=== PATIENT | female | born 1960 | race Caucasian/White ===

== ENCOUNTER 2016-10-21 09:16 | Outpatient (CLI) | payer MEDICAID ==
[2016-10-21] MEDS ORDERED: IOPAMIDOL-300 50 ML VIAL IVP ONE (11:26)
[2016-10-21] MEDS ORDERED: IOPAMIDOL-300 50 ML VIAL PO ONE (12:00)
== END 2016-10-21 09:17 | disposition home or self-care (01) ==
DX: K80.20 Calculus of gallbladder without cholecystitis without obstruction (principal); R59.9 Enlarged lymph nodes, unspecified
CPT/HCPCS: 74177; Q9967

== ENCOUNTER 2016-12-29 15:40 | Outpatient (CLI) | payer MEDICAID ==
[2016-12-29] MEDS ORDERED: GADOBUTROL 10 MMOL/10 ML SYRINGE IVP ONE (17:20)
--- NOTE | 2016-12-30 16:52 | MRI Report ---
EXAM: MR PELVIS WITH AND WITHOUT CONTRAST EXAM DATE: 12/29/2016 05:40 PM. CLINICAL HISTORY: Pain in right hip COMPARISON: Abdomen and pelvis CT 10/21/2016. TECHNIQUE: Multiplanar breath-hold T1, T2 sequences obtained through the pelvis on an MR scanner. Im ages obtained before and after administration of 8.5 mL Gadavist intravenous contrast. FINDINGS: Bowel: Note is made of colonic diverticulosis without focal inflammation. Bladder: The urinary bladder appears normal. Reproductive Organs: Patient is status post hysterectomy and there are no adnexal masses. Soft Tissues: Heterogeneous T2 material is present at the level of the right inguinal canal consisten t with prior right inguinal hernia repair. No recurrent hernia is seen. Note is made of thinning of t he distal left rectus musculature with a fat-containing left direct inguinal hernia present (series 9 01, image #14) . No inflammation seen at the level the hernia sac. Bony Structures: No occult fracture. Note is made of a small right hip effusion with some hyperenhanc ement and thickening of the right hip synovium (series 1201, image #58 and series 1401, image #143). IMPRESSION: 1. Status post right inguinal hernia repair without evidence of recurrent hernia. 2. Fat-containing left direct inguinal hernia without evidence of inflammation in the hernia sac. 3. Small right hip effusion with some synovial thickening suggesting synovitis. As clinically needed, dedicated right hip MR would have improved evaluation of internal structures of the right hip. 4. Status post hysterectomy. [facility] Referring Provider Line: [phone] SITE ID: [id number]
== END 2016-12-29 15:41 | disposition home or self-care (01) ==
LOC: DI 15:40
PROVIDERS: ATTEND Surgery
DX: K40.90 Unilateral inguinal hernia, without obstruction or gangrene, not specified as recurrent (principal); M25.451 Effusion, right hip; Z90.710 Acquired absence of both cervix and uterus
CPT/HCPCS: 72197; A9585

== ENCOUNTER 2017-01-19 15:13 | Outpatient (CLI) | payer MEDICAID ==
[2017-01-19 15:35] LABS: BASOPHILS # (AUTO) 0.1 10^3/uL (0.0-0.1); BASOPHILS % (AUTO) 0.7 %; EOSINOPHILS # (AUTO) 0.3 10^3/uL (0.0-0.7); EOSINOPHILS % (AUTO) 3.5 %; HCT - HEMATOCRIT 43.4 % (37.0-47.0); HGB - HEMOGLOBIN 14.6 g/dL (12.0-16.0); LYMPHOCYTES # (AUTO) 1.8 10^3/uL (1.5-3.5); LYMPHOCYTES % (AUTO) 22.1 %; MEAN CORPUSCULAR HEMOGLOBIN 30.8 pg (27.0-31.0); MEAN CORPUSCULAR HGB CONC 33.6 g/dL (32.0-36.0); MEAN CORPUSCULAR VOLUME 91.6 fL (81.0-99.0); MONOCYTES # (AUTO) 0.5 10^3/uL (0.0-1.0); MONOCYTES % (AUTO) 6.6 %; NEUTROPHILS # (AUTO) 5.6 10^3/uL (1.5-6.6); NEUTROPHILS % (AUTO) 67.1 %; RED BLOOD COUNT 4.74 10^6/uL (4.20-5.40); RED CELL DISTRIBUTION WIDTH 13.3 % (12.0-15.0); UNCORRECTED WHITE BLOOD COUNT 8.3 x10^3/uL; WHITE BLOOD COUNT 8.3 x10^3/uL (4.8-10.8)
== END 2017-01-19 15:14 | disposition home or self-care (01) ==
LOC: LAB 15:13
PROVIDERS: ATTEND Obstetrics & Gynecology
DX: R10.31 Right lower quadrant pain (principal)
CPT/HCPCS: 36415; 85025

== ENCOUNTER 2017-01-21 11:22 | Day surgery (SDC) | payer MEDICAID ==
--- NOTE | 2017-01-19 17:55 | PREOP HISTORY & PHYSICAL ---
DATE OF ADMISSION/SURGERY: 01/21/2017 IDENTIFYING INFORMATION: This is 56-year-old G4, P3, 0-1-3. HISTORY OF PRESENT ILLNESS: The patient presents for her scheduled preoperative visit. The patient mcmullen s been noting a right lower quadrant pain that has now evolved to her lower abdomen. The patient's hi story is significant for an 05/14/2016 total laparoscopic hysterectomy, bilateral salpingo-oophorecto my and cystoscopy for postmenopausal bleeding. Her surgery went well, there were no complications. Pa thology revealed a uterus weighing 144 grams at 9.2 x 6.7 x 5.0 cm, cervix with no diagnostic alterat ions, benign endometrial polyp, background of disordered proliferative endometrium without atypia, hy perplasia or chronic endometritis, focal adenomyosis, benign leiomyomata. Fallopian tubes and ovaries no pathologic abnormalities. The patient's pain started in about October of 2016. The patient came back to me on 10/14/2016 with compl aints of 4 to 6 weeks of pain in the right lower quadrant worsening at night. To recall that she had a hernia repair with mesh in the right inguinal area. She feels her body tissue is weak. If she lifts or does any vacuuming or light gardening she has pain. The pain was rated as an 8/10 at that point i n time. She had to cancel scheduled events. She denied any vaginal bleeding or discharge. She also de nied any difficulty with urination or emptying her bowel. The patient was placed on NSAIDs as well as Oxycodone. I also asked for a CT which on 10/16/2016 showed right external iliac adenopathy, normal appendix and cholelithiasis. Referral was made to General Surgery and Dr. Vinita Kowalski saw the pa tient. She did not have any answers as well as to why patient had any pain. Finally, MRI was performe d which did not reflect any herniation in her anterior abdominal wall. The patient is currently scheduled for a 01/21/2017 diagnostic laparoscopy with possible lysis of adh esions. She states that in the last few weeks the pain which is like cramping is 100 times worse. The pain is in the right lower quadrant, but also left lower quadrant. She denies any fevers, chills, na usea, or vomiting. She also denies any vaginal bleeding or problems with defecating or urinating. The patient definitely wants to get this surgery done and over with as she is significantly inhibited in performing daily activities of life. She cannot go outside and take care of her animals or garden. A lso, she cannot lift any grandkids. I discussed with patient the risks, benefits, alternatives, indications, expectations of a diagnostic laparoscopy with possible lysis of adhesions. Included in our discussion were the risks of hemorrhag e, infection, inadvertent laceration, cauterization or ligation of the adjacent intestines, ureters o r bladder. There was also a possibility that we will find a completely benign pelvis. After all patie nt's questions were answered to her satisfaction she verbalized her desire to proceed with surgery. C onsent forms have been signed. I did tell patient that I will be very meticulous in examining her abd omen and pelvis should there be an abnormality such as possibility of appendicitis I will call [facility] in for an appendectomy. The patient was amenable to that plan. PAST MEDICAL HISTORY: 1. Chronic insomnia. 2. Anxiety. 3. Asthma. 4. Hypertension. 5. Gastrointestinal reflux disease. PAST SURGICAL HISTORY: 1. 1972 valve repair. 2. 1998 shoulder repair. 3. 2004 breast reduction as well as abdominoplasty. 4. 2002 melanoma. 5. 2008 hernia repair. 6. 05/14/2016 total laparoscopic hysterectomy with bilateral salpingo-oophorectomy and cystoscopy. ALLERGIES: NO KNOWN DRUG ALLERGIES. MEDICATIONS: 1. Oxycodone p.r.n. 2. Tramadol 50 mg t.i.d. 3. Alprazolam 0.25 mg p.o. t.i.d. p.r.n. 4. Estradiol 1.5 mg p.o. daily. 5. Ambien 5 mg p.o. daily. 6. Ventolin HFA p.r.n. 7. Advair Diskus p.r.n. SOCIAL HISTORY: She denies any tobacco, alcohol, or illicit drug use. PAST OBSTETRICAL HISTORY: Three term spontaneous vaginal deliveries with 1 spontaneous . PAST GYNECOLOGIC HISTORY: She denies any abnormal Pap smears or sexually transmitted diseases. Again, patient is status post hysterectomy secondary to postmenopausal bleeding. FAMILY HISTORY: Not contributory. REVIEW OF SYSTEMS: Negative unless otherwise stated. OBJECTIVE: VITAL SIGNS: Height is 69 inches, weight 196 pounds, BMI is 29.1, blood pressure 130/80. GENERAL: Patient is a well-developed, well-nourished female in no apparent distress. She is alert and oriented x3. She is very pleasant and easy to speak to. Patient is talkative. HEENT: Patient does wear glasses, but otherwise within normal limits. CARDIOVASCULAR: Regular, no murmurs or rubs. PULMONARY: Lungs are clear to auscultation bilaterally. ABDOMEN: Soft, nontender. Previous laparoscopic incision sites are well healed. She does have a well healed abdominoplasty scar. ASSESSMENT: 1. A 56-year-old G4, P3, 0-1-3. 2. Chronic pelvic pain. 3. Status post total laparoscopic hysterectomy and bilateral salpingo-oophorectomy and cystoscopy on 05/14/2016. PLAN: 1. Will proceed to as scheduled diagnostic laparoscopy with possible lysis of adhesions on 01/21/2017 . 2. Prescription for oxycodone for breakthrough pain. 3. The patient to see me in 2 weeks for routine postop visit. JOB #: [id number] EXT JOB #:[id number]
[2017-01-21] MEDS ORDERED: CELECOXIB 100 MG CAPSULE PO ONE (11:44)
[2017-01-21] MEDS ORDERED: LACTATED RINGERS 1,000 ML IV ONE ×2 (12:00→14:41)
[2017-01-21] MEDS ORDERED: fentaNYL 100 MCG/2 ML VIAL IVP ONE (14:00)
[2017-01-21] MEDS ORDERED: ROCURONIUM 50 MG/5 ML VIAL IVP ONE (14:00)
[2017-01-21] MEDS ORDERED: hydrALAZINE INJ 20 MG/ML VIAL IVP ONE (14:00)
[2017-01-21] MEDS ORDERED: MIDAZOLAM 2 MG/2 ML VIAL IVP ONE (14:00)
[2017-01-21] MEDS ORDERED: NEOSTIGMINE 1 MG/1 ML 10 ML MDV IVP ONE (14:00)
[2017-01-21] MEDS ORDERED: PROPOFOL 200 MG/20 ML VIAL IVP ONE (14:00)
[2017-01-21] MEDS ORDERED: SUCCINYLCHOLINE 200 MG/10 ML VIAL IVP ONE (14:00)
[2017-01-21] MEDS ORDERED: KETOROLAC 30 MG/ML VIAL IVP ONE (14:00)
[2017-01-21] MEDS ORDERED: GLYCOPYRROLATE 1 MG/5 ML VIAL IVP ONE (14:00)
[2017-01-21] MEDS ORDERED: ONDANSETRON 4 MG/2 ML VIAL IVP ONE (14:00)
[2017-01-21] MEDS ORDERED: LIDOCAINE-MPF 2% 5 ML VIAL IM ONE (14:00)
[2017-01-21] MEDS ORDERED: LIDOCAINE MPF 1%-EPI 1:200000 30 ML VIAL SUBQ ONE ×2 (14:06)
[2017-01-21] MEDS: HYDROmorphone 1 MG/ML SYRINGE ONE ×3 (14:52→15:04)
--- NOTE | 2017-01-21 14:52 | OPERATIVE REPORT ---
Operative Report - Other Other Information/Narrative: Date of Operation: 01/21/2017 Surgeon: Gail Hardin DO ACOG Performance Improvement Specialist: None Tailor Apprentice: Ron Enriquez CRNA and Livan Reed CRNA Anesthesia: GET Pre-op Dx: 1. 56 yo 2. Chronic pelvic pain Pre-op Dx: 1. 56 yo 2. Chronic pelvic pain Procedure: Laparoscopic lysis of adhesions Findings: Surgically absent uterus, fallopian tubes and ovaries. Adhesions between omentum and right sidewall Specimens: None Drains: None EBL: 20 mL Complications: None Dictation #: [id number]
[2017-01-21] MEDS: fentaNYL 100 MCG/2 ML VIAL ONE ×2 (15:14→15:19)
[2017-01-21] MEDS ORDERED: oxyCODONE 5 MG TABLET ONE (15:47)
[2017-01-21 16:30] VITALS: BP 147/76
--- NOTE | 2017-01-22 07:18 | OPERATIVE REPORT ---
DATE OF SURGERY: 01/21/2017 00:00:00 SURGEON: Gail Hardin DO. HOUSEKEEPING STAFF: None. ANESTHETISTS 1. Ron Enriquez CRNA for injection of anesthesia and through the majority of the case. 2. Livan Reed CRNA for closing of the case. ANESTHESIA: General endotracheal tube. PREOPERATIVE DIAGNOSES 1. A 56-year-old G4, P3-0-1-3. 2. Chronic pelvic pain. POSTOPERATIVE DIAGNOSES 1. A 56-year-old G4, P3-0-1-3. 2. Chronic pelvic pain. PROCEDURE: Laparoscopic lysis of adhesions. FINDINGS: Surgically absent uterus, fallopian tubes, and ovaries. Adhesions seen between the omentum and the right upper abdominal sidewall. SPECIMENS: None. DRAINS: Drains none. ESTIMATED BLOOD LOSS: 20 mL. COMPLICATIONS: None. BRIEF HISTORY: This is a patient of [facility] who is status post total laparoscopic hysterectomy and bilateral salpingo-oophorectomy in April of 2016. She started developing chronic pelvic pain earlier this year. Despite a trial of conservative methods including Motrin, as well as oxycodone, her pain persisted. I discussed with her the risks, benefits, terms, indications , expectations of a diagnostic laparoscopy with possible lysis of adhesions. After her questions were answered to her satisfaction, she verbalized her desire to proceed with surgery. Consent forms have been signed. OPERATION IN DETAIL: The patient was identified, consented, taken to the operating room where IV access was already in place. Sequential compression devices were placed on the lower extremities and turned on. She was then intubated with general endotracheal tube and then prepped and draped in the normal sterile fashion in the supine position. A timeout was performed, which correctly identified the patient, site of the procedure, and the procedures themselves. Two laparoscopic port sites were first identified, both 5 mm length and in the subumbilical fold, as well as the left lower quadrant where her previous laparoscopic port sites had been placed. A total of 5 mL of Marcaine 5% with epinephrine was used to inject both port sites. Stab incisions were made and the laparoscopic ports were placed under visualization with the camera using Visi-Port trocar. CO2 gas was then used to insufflate the abdomen and thus obtain satisfactory pneumoperitoneum. Inspection of the pelvis revealed a normal pelvis with a surgically absent uterus, fallopian tubes, and ovaries. There were some areas of healing in the peritoneum on the right sidewall. Looking superiorly from the pelvic brim, there were significant adhesions between the omentum and the right abdominal sidewall. Though the patient's symptoms were more in the right lower quadrant than left lower quadrant, I decided to proceed with lysis of adhesions from the omentum. This was performed with LigaSure using blunt dissection and electrocautery. After the omentum was freed, there was a small amount of bleeding noted. Surgicel was used to obtain hemostasis. I then placed Seprafilm on the top of the areas of the lysis of adhesions in order to prevent any future adhesions. At this point in time, the procedure had ended. CO2 gas was allowed to egress into the atmosphere, thus relieving the pneumoperitoneum. All instruments were removed out of the abdomen. The two 5 mm trocar port sites were then reapproximated with subcuticular stitches using 4-0 Monocryl. Dermabond was then placed on top of the incision. The patient tolerated the procedure well and was taken back to the recovery room in stable condition. She will discharged to home later today after postoperative criteria are met. The patient does have an appointment to see me in 2 weeks and does have oxycodone for breakthrough pain. All sponge, lap, and needle counts were correct x2 as per nurse report. JOB #: [id number] EXT JOB #:[id number] ART
== END 2017-01-21 11:23 | disposition home or self-care (01) ==
LOC: SDS 11:22
PROVIDERS: ATTEND Obstetrics & Gynecology
PROC: 0DNW4ZZ Release Peritoneum, Percutaneous Endoscopic Approach (ICD-10-PCS; principal; 2017-01-21 12:30)
DX: N73.6 Female pelvic peritoneal adhesions (postinfective) (principal); G89.29 Other chronic pain; Z90.722 Acquired absence of ovaries, bilateral; Z90.710 Acquired absence of both cervix and uterus; Z90.79 Acquired absence of other genital organ(s); J45.909 Unspecified asthma, uncomplicated; F41.9 Anxiety disorder, unspecified
CPT/HCPCS: 49329; A9270; J1170; J7120

== ENCOUNTER 2017-03-10 19:33 | Outpatient (CLI) | payer MEDICAID | END 2017-03-10 19:34 | disposition home or self-care (01) | LOC: LAB.R 19:33 | PROVIDERS: ATTEND Physician Assistant Medical | DX: Z20.2 Contact with and (suspected) exposure to infections with a predominantly sexual mode of transmission (principal) | CPT/HCPCS: 87491; 87591 ==

== ENCOUNTER 2017-07-23 14:18 | Outpatient (CLI) | payer MEDICAID ==
--- NOTE | 2017-07-24 10:31 | XRAY Report ---
DATE OF SERVICE: 07/23/2017 TWO VIEW CHEST: 07/23/2017 CLINICAL INDICATION: Bronchitis, asthma. COMPARISON: 08/18/2011. FINDINGS: Frontal and lateral views of the chest demonstrate a normal cardiac silhouette. There is perihilar peribronchial thickening. Basilar atelectasis or scarring is stable. No focal infiltrate, effusion, or pneumothorax is present. IMPRESSION: BILATERAL PERIHILAR PERIBRONCHIAL THICKENING. TD: 07/24/2017 11:30
== END 2017-07-23 14:19 | disposition home or self-care (01) ==
LOC: DI.S 14:18
PROVIDERS: ATTEND Family Medicine
DX: J45.909 Unspecified asthma, uncomplicated (principal)
CPT/HCPCS: 71046

== ENCOUNTER 2017-12-15 14:45 | Outpatient (CLI) | payer MEDICAID ==
[2017-12-15 15:36] LABS: CREATININE 0.7 mg/dL (0.4-1.0)
== END 2017-12-15 14:46 | disposition home or self-care (01) ==
LOC: LAB 14:45
PROVIDERS: ATTEND Obstetrics & Gynecology
DX: R10.84 Generalized abdominal pain (principal)
CPT/HCPCS: 36415; 82565

== ENCOUNTER 2017-12-17 10:32 | Outpatient (CLI) | payer MEDICAID ==
[2017-12-17] MEDS ORDERED: IOPAMIDOL-300 100 ML VIAL ONE (10:49)
[2017-12-17] MEDS ORDERED: IOPAMIDOL-300 50 ML VIAL ONE (10:49)
[2017-12-17] MEDS ORDERED: IOPAMIDOL-300 50 ML VIAL PO ONE (13:11)
[2017-12-17] MEDS ORDERED: IOPAMIDOL-300 100 ML VIAL IVP ONE (13:11)
--- NOTE | 2017-12-17 15:49 | CT Report ---
Procedure Date: 12/17/2017 Accession Number: [id number] / [id number] Procedure: CT - Abdomen/Pelvis W/ CPT Code: FULL RESULT: EXAM: CT ABDOMEN AND PELVIS EXAM DATE: 12/17/2017 11:54 AM. CLINICAL HISTORY: GENERALIZED ABDOMINAL PAIN. COMPARISONS: 10/21/2016, 12/29/2016. TECHNIQUE: Routine helical CT imaging was performed through the abdomen and pelvis. IV contrast: ISOVUE 300 100mL. Enteric contrast: No. Reconstructions: Coronal and sagittal. In accordance with CT protocol optimization, one or more of the following dose reduction techniques were utilized for this exam: automated exposure control, adjustment of mA and/or KV based on patient size, or use of iterative reconstructive technique. FINDINGS: Lung Bases: Scarring noted at the inferior aspect of the right middle lobe and lung bases. No pleural effusions. Liver: Unchanged small well-defined hepatic hypodensities in the liver, the larger lesions are compatible with cysts, the subcentimeter lesions are stable, but too small adequately characterize, possibly additional cysts, biliary hamartomas, or hemangiomas. No new enhancing liver lesion is seen. Hepatic and portal veins appear patent. Gallbladder/Bile Ducts: Multiple gallstones again noted. Contracted gallbladder. No biliary dilation. Spleen: No splenomegaly no focal sparing lesion. Small accessory spleen seen inferior to the spleen. Pancreas: Unremarkable pancreas without evidence for ductal dilation or inflammation. Adrenal Glands: Normal. Kidneys: Normal. No masses or hydronephrosis. Peritoneal Cavity/Bowel: No pneumoperitoneum or ascites. Small to moderate-sized hiatal hernia again seen. Bowel loops are otherwise normal in caliber without signs of obstruction. Scattered colonic diverticula, notably in the sigmoid colon, without evidence for acute diverticulitis. Appendix is normal. No enlarged intraperitoneal or retroperitoneal lymph nodes are seen. No discrete fluid collections are evident. Pelvic Organs: Unremarkable urinary bladder for degree of distention. Prostate and seminal vesicles appear normal by CT. Plug is seen in the right groin for right inguinal hernia repair. No evidence for recurrence. Small left inguinal hernia is seen. Vasculature: No aneurysms or other significant abnormality. Bones: No significant abnormality. Other: None. IMPRESSION: 1. Cholelithiasis with contracted gallbladder. Right upper quadrant ultrasound could be obtained for further evaluation if clinically indicated. 2. Otherwise, no acute abnormality seen in the abdomen or pelvis. Normal appendix. No CT findings to exclude acute abdominal pain. 3. Scattered colonic diverticulosis without evidence for acute diverticulitis. 4. Hypodense hepatic lesions are unchanged compared to prior, with the larger lesions representing simple cysts. 5. Expected, unchanged appearance post-right inguinal hernia repair. [facility] ADDENDUM: 12/18/17 09:24 Clarification: The uterus is surgically absent. Unremarkable appearance of the vaginal cuff.
== END 2017-12-17 10:33 | disposition home or self-care (01) ==
LOC: DI 10:32
PROVIDERS: ATTEND Obstetrics & Gynecology
DX: K80.20 Calculus of gallbladder without cholecystitis without obstruction (principal); K57.30 Diverticulosis of large intestine without perforation or abscess without bleeding; K76.9 Liver disease, unspecified
CPT/HCPCS: 74177; Q9967

== ENCOUNTER 2018-03-03 06:26 | Day surgery (SDC) | payer MEDICAID ==
--- NOTE | 2018-03-03 01:39 | PREOP HISTORY & PHYSICAL ---
DATE OF SERVICE: 03/03/2018 Physician: Gail Hardin DO FACOG IDENTIFICATION: This is a 57-year-old G4, P3-0-1-3. HISTORY OF PRESENT ILLNESS: Patient is a patient of [facility] who presents today for her regular scheduled preoperative visit. She has been scheduled for a 03/03/2018 diagnostic laparoscopy. I have known patient since 2016, in which I performed a total laparoscopic hysterectomy, bilateral salpingectomy and cystoscopy secondary to postmenopausal bleeding. She delivered a 144 gram uterus with no diagnostic alterations. Focal adenomyosis was seen. The adnexa were within normal limits. Patient had a normal recovery until September 2016, when she presented to me with right lower quadrant pain, lasting 4-6 weeks. Patient was observed and eventually had to undergo a 01/21/2017 diagnostic laparoscopy with lysis of adhesions. There was omentum noted between the right abdominal sidewall. Patient did quite well after surgery until November 2017, when she presented with very similar complaints as to her abdominal adhesions. Since July 2017, she has been having progressively worse pain at the lower abdomen, but particularly in the left lower quadrant. She states that the pain is getting worse, particularly when she lifts or does a lot of activity. She feels that her pain is occurring in the core area. The pain was estimated to be 7 to 8/10. Pain also feels like cramping. Vicodin did take the edge off. The symptoms continued to sound like it is adhesions again in etiology. I discussed with patient that, if she should desire, we can proceed again to another diagnostic laparoscopy, as surgery in and of itself can stimulate the growth of adhesions. I discussed with patient the risks, benefits, alternatives , indications and expectations of the diagnostic laparoscopy with the possibility of lysis of adhesions. Included in our discussion were the risks of hemorrhage, infection, damage to surrounding organs which may include, but are not limited to inadvertent laceration, cauterization or ligation of the adjacent intestines, bladder and ureters. Furthermore, there is a possibility that we will find a completely benign pelvis and no cause can be identified. After patient's questions were answered to her satisfaction, she verbalized her desire to proceed with surgery. Patient states that she is excited to get surgery over with, as she wants to be able to move without pain. She is more cognizant now about having no physical activity after surgery in order to minimize the chance of growth of any future scars. Patient will not lift her grand-baby, or lift anything more than 5 pounds. She currently denies any nausea, vomiting, fevers, chills, or headache. She also denies diarrhea or constipation. PAST MEDICAL HISTORY 1. Chronic insomnia. 2. Anxiety. 3. Asthma. 4. Hypertension. 5. GERD. PAST SURGICAL HISTORY 1. 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 2. Left shoulder. 3. Right inguinal hernia with mesh. 4. Abdominoplasty. 5. Breast augmentation. 6. In 1972, at age 12, open heart surgery for valve. She has not had any problems with this. ALLERGIES: NO KNOWN DRUG ALLERGIES. MEDICATIONS 1. Advair Diskus p.r.n. 2. Ventolin. 3. Estradiol. 4. Zolpidem. 5. Pepcid. SOCIAL HISTORY: She denies any tobacco or illicit drug use. She does consume alcohol on a social basis. She does sell real estate. Her youngest child is Tho, who is approximately age 25. PAST SURGICAL HISTORY: Three term spontaneous vaginal deliveries, the biggest baby weighing 11 pounds 15 ounces. She did have a hemorrhage. On , laparoscopic lysis of adhesions. PAST GYNECOLOGIC HISTORY: All Pap smears have been described within normal limits. She is status post total laparoscopic hysterectomy with bilateral salpingo-oophorectomy on 05/14/2016, without complication. FAMILY HISTORY: Noncontributory. REVIEW OF SYSTEMS: Negative, unless otherwise stated. OBJECTIVE VITAL SIGNS: Stable. She is afebrile. HEENT: Within normal limits. CARDIOVASCULAR: Rate is regular. No murmurs, rubs. PULMONARY: Lungs are clear to auscultation bilaterally. ABDOMEN: Soft, nontender. There are well-healed scars from her prior surgeries as described in the past surgical history. DIAGNOSTIC DATA: The 12/17/2017 CT of the abdomen and pelvis showed no pneumoperitoneum or ascites with a [id number] sized hiatal hernia seen again, scattered colonic diverticula notably in the sigmoid colon without evidence for acute diverticulitis, plugs in the right groin for a right inguinal repair. No evidence for recurrence. Small left inguinal hernia seen. Uterus surgically absent. Unremarkable appearance of the vaginal cuff. ASSESSMENT 1. A 57-year-old G4, P3-0-1-3, status post 05/14/2016 total laparoscopic hysterectomy with bilateral salpingo-oophorectomy and cystoscopy. 2. Status post 01/21/2017 laparoscopic lysis of adhesions. 3. Return of chronic pelvic pain. PLAN 1. We will proceed to a scheduled diagnostic laparoscopy on 03/03/2018 with possible lysis of adhesions. 2. Patient has been instructed to take ibuprofen and Tylenol as her first form of pain control, and she has a prescription for oxycodone for any breakthrough pain she may have. 3. Strict limitations of no lifting given to patient. 4. Patient will return to see me in 2 weeks at [facility] for a routine postoperative check. 5. Patient is to call if she has any worsening fevers, chills, abdominal pain or vaginal bleeding. TD: 03/02/2018 15:31 ART
[~2018-03-03 06:26] MED LIST: CELECOXIB 100 MG CAPSULE PO ONE
[2018-03-03] MEDS ORDERED: LACTATED RINGERS 1,000 ML IV ONE ×2 (06:37→08:22)
--- NOTE | 2018-03-03 07:02 | ANESTHESIA ---
Pre-Anesthesia VS, & Labs - Diagnosis Pelvic pain - Procedure Diagnostic laparascopy Vital Signs: Temp Pulse Resp BP Pulse Ox 36.2 C L 18 138/98 H 97 03/03/18 06:47 03/03/18 06:47 03/03/18 06:47 03/03/18 06:47 Height 5 ft 9 in Weight (kg) 79.9 kg Body Mass Index 28.0 - NPO >8 hours Last Fluid Intake: 0630, water with Celebrex - Is Patient ?: No - Lab Results Lab results reviewed: Yes Home Medications and Allergies Home Medications: Ambulatory Orders Medication Instructions Recorded Confirmed Albuterol Sulf [Ventolin Hfa 2 puffs INH PRN PRN 05/12/16 03/02/18 Inhaler] Estradiol 0.5 mg PO DAILY 05/12/16 03/02/18 Fluticasone/Salmeterol 250/50 1 puffs INH BID 05/12/16 03/02/18 [Advair 250 Mcg/50 Mcg] Zolpidem [Ambien] 5 mg PO DAILY PRN 05/12/16 03/02/18 predniSONE [Prednisone] 10 mg PO BID PRN 05/12/16 03/02/18 Allergies/Adverse Reactions: Allergies Allergy/AdvReac Type Severity Reaction Status Date / Time No Known Drug Allergies Allergy Verified 03/03/18 06:58 Anes History & Medical History - Anesthetic History Anesthesia Complications: reports: No previous complications Family history of Anesthesia Complications: Denies Family history of Malignant Hyperthermia: Denies - Medical History Cardiovascular: reports: Valve disorder Pulmonary: reports: Asthma Gastrointestinal: reports: None, Other (Hernia) Urinary: reports: None Neuro: reports: None Musculoskeletal: reports: Osteoarthritis, Other Endocrine/Autoimmune: reports: None Blood Disorders: reports: None Skin: reports: None Smoking Status: Former smoker Psychosocial: reports: No issues indicated - Surgical History General: Colonoscopy, Other Cardiothoracic: Valve replacement (Age 12, right thoracic approach) Gynecologic: Hysterectomy, Breast implants Orthopedic: Rotator cuff repair Exam General: Alert Dental: WNL Mouth Opening: Greater than 4 Fingerbreadths Neck Mobility: Normal Mallampati classification: I Thyromental Distance: greater than 6 cm Respiratory: Lungs clear Cardiovascular: Regular rate Mental/Cognitive Status: Alert/Oriented X3 Cognitive Status: Within normal limits Plan Anesthesia Type: General Consent for Procedure(s) Verified and Reviewed: Yes Code Status: Attempt Resuscitation ASA classification: 2-Mild systemic disease Is this case an emergency?: No
[2018-03-03] MEDS ORDERED: LIDOCAINE 1%-EPI 1:100000 30 ML MDV ONE (07:22)
[2018-03-03] MEDS ORDERED: PROPOFOL 1000 MG/100 ML IV ONE (08:27)
[2018-03-03] MEDS ORDERED: DEXAMETHASONE 4 MG/ML VIAL IVP ONE (08:27)
[2018-03-03] MEDS ORDERED: ROCURONIUM 50 MG/5 ML VIAL IVP ONE (08:27)
[2018-03-03] MEDS ORDERED: ONDANSETRON 4 MG/2 ML VIAL IVP ONE (08:27)
[2018-03-03] MEDS ORDERED: GLYCOPYRROLATE 1 MG/5 ML VIAL IVP ONE (08:27)
[2018-03-03] MEDS ORDERED: fentaNYL 250 MCG/5 ML VIAL IVP ONE (08:27)
[2018-03-03] MEDS ORDERED: MIDAZOLAM 2 MG/2 ML VIAL IVP ONE (08:27)
[2018-03-03] MEDS ORDERED: NEOSTIGMINE 1 MG/1 ML 10 ML MDV IVP ONE (08:27)
--- NOTE | 2018-03-03 09:03 | OPERATIVE REPORT ---
Operative Report - Other Other Information/Narrative: Date of Operation: 03/03/2018 Surgeon: Gail Hardin DO FACOG [employer] Layout: None Child Psychologist: Sharon Morrow CRNA Anesthesia: GET Pre-Op Dx: 1. 57 yo 2. Chronic pelvic pain Post-Op Dx: 1. 57 yo 2. Chronic pelvic pain 3. Adhesions Procedure: 1. Diagnostic laparoscopy 2. Lysis of adhesions Findings: Adhesions between omentum and right abd sidewall Specimens: None Drains: None EBL: 2 mL Complications: None OP Note Dictation #: [id number]
[2018-03-03] MEDS ORDERED: fentaNYL 100 MCG/2 ML VIAL ONE (09:49)
[2018-03-03] MEDS ORDERED: oxyCOD/ACETAMIN 5 MG/325 MG TABLET PO ONE (10:06)
[2018-03-03 10:28] VITALS: BP 156/99
--- NOTE | 2018-03-03 13:22 | OPERATIVE REPORT ---
DATE OF SERVICE: 03/03/2018 SURGEON: Gail Hardin DO, [facility] [employer] DIRECTOR: None. ANESTHESIOLOGIST: Sharon Morrow CRNA. ANESTHESIA: General endotracheal tube. PREOPERATIVE DIAGNOSES 1. 57-year-old G4, P3-0-1-3. 2. Chronic pelvic degeneration. POSTOPERATIVE DIAGNOSES 1. 57-year-old G4, P3-0-1-3. 2. Chronic pelvic pain. 3. Adhesions. OPERATIONS PERFORMED 1. Diagnostic laparoscopy. 2. Lysis of adhesions. FINDINGS 1. Adhesions between the omentum and the right abdominal sidewall. 2. Surgically absent uterus, fallopian tubes, and ovaries. 3. Normal appendix and liver edge. SPECIMENS: None. DRAINS: None. ESTIMATED BLOOD LOSS: 2 mL. COMPLICATIONS: None. BRIEF HISTORY: The patient is a patient of [facility] who has been having a progressively worse chronic pelvic pain. She did have a total laparoscopic hysterectomy with bilateral salpingo-oophorectomy on 05/14/2016. From that surgery, she had adhesions and underwent a 01/21/2017 laparoscopic lysis of adhesions. From the patient's history, it sounds like she has identical symptoms to her previous cause of chronic pelvic pain. I discussed with the patient the risks, benefits, alternatives, indications, expectations of an exploratory laparoscopy with possible lysis of adhesions. Included in our discussion were of the risks of hemorrhage, infection and damage to surrounding organs, which may include, but are not limited to inadvertent laceration, cauterization and ligation. After all of the patient's questions were answered to her satisfaction, she verbalized her desire to proceed with surgery. OPERATION IN DETAIL: The patient was identified and consented, taken to the operating room where IV access was already in place. She was then given sequential compression devices, which were placed in her lower extremities and turned on. She was then given a satisfactory general endotracheal tube anesthesia per Sharon Morrow. She was then prepped and draped in normal sterile fashion in the supine position. Timeout was performed, which corrected correctly identify the patient, site of the procedures, and the procedures themselves. Three laparoscopic port sites were first identified in the abdomen. They were all 5 mm in length. The first was placed in the supraumbilical fold. The left and right ports were placed in the previously identified laparoscopic ports. They were all approximately two fingerbreadths superior and medial to their respective anterior superior iliac spines. The first trocar was placed in the supraumbilical fold. After 1% lidocaine with epinephrine was used to inject the area, entrance of the abdomen was made with a Visiport trocar. No trauma to intraabdominal organs was noted. CO2 gas was then allowed to inflate the abdomen, and satisfactory pneumoperitoneum was obtained. The two other trocars were then placed under direct visualization of the camera. No trauma to intraabdominal organs was noted. Inspection of the pelvis revealed a surgically absent uterus, fallopian tubes, and ovaries. Liver edge was normal. Visualization of the right abdominal sidewall, however, revealed significant adhesions between the omentum and the right abdominal sidewall. This appeared to be quite similar to the patient's previous surgery. The adhesions were then subsequently taken down with the [place] LigaSure. Seprafilm was placed on top of the areas where the adhesions were taken down, in order to help prevent further adhesion growth in that area. At this point in time, the procedure had been completed. CO2 was then allowed to egress into the atmosphere, thus relieving the pneumoperitoneum. All instruments were removed on the abdomen. The incisions were then reapproximated with 4-0 Monocryl, and Dermabond was placed on top of the incisions. The patient tolerated the procedure well, and was taken back to the recovery room in a stable condition. She will be discharged to home later today after postoperative criteria have been met. She does have a prescription of oxycodone for breakthrough pain. She is also to take NSAIDs and acetaminophen first. The patient has an appointment with me in two weeks at [facility] for routine postoperative examination. I will talk to Shima, the patient's sister, about surgery and give them a copy of today's photos. TD: 03/03/2018 09:19 ART
== END 2018-03-03 06:27 | disposition home or self-care (01) ==
LOC: SDS 06:26
PROVIDERS: ATTEND Obstetrics & Gynecology
PROC: 0DNU4ZZ Release Omentum, Percutaneous Endoscopic Approach (ICD-10-PCS; principal; 2018-03-03 07:30)
DX: K66.0 Peritoneal adhesions (postprocedural) (postinfection) (principal); F41.9 Anxiety disorder, unspecified; J45.909 Unspecified asthma, uncomplicated; I10 Essential (primary) hypertension; K21.9 Gastro-esophageal reflux disease without esophagitis; Z90.79 Acquired absence of other genital organ(s); Z79.51 Long term (current) use of inhaled steroids
CPT/HCPCS: 49329; A9270; J3010; J7120

== ENCOUNTER 2018-03-26 12:53 | Outpatient (CLI) | payer MEDICAID ==
--- NOTE | 2018-03-26 17:09 | Mammography Report ---
Reason: LEFT BREAST LUMP Procedure Date: 03/26/2018 Accession Number: [id number] / [id number] Procedure: CHANCE - Diagnostic Dig Bilat CPT Code: FULL RESULT: EXAM: Diagnostic Dig Bilat DATE: 03/26/2018 1:31 PM CLINICAL HISTORY: 57-year-old female with history of saline breast implants presents with left breast tenderness. TECHNIQUE: Bilateral CC and MLO views were obtained in both implant displaced and traditional technique. Additionally, left spot LM and left spot CC views were obtained and focused left breast ultrasound was performed. COMPARISON: 06/07/2015, 01/02/2009, 04/20/2008. FINDINGS: The breasts demonstrate heterogeneously dense fibroglandular parenchyma bilaterally. The area marked with a BB in the left breast demonstrates a hyperdense well-circumscribed mass which is visible dating back to 2007 and immediately adjacent to this are new coarse heterogeneous and finely near calcifications which are suspicious. Focused ultrasound of this area demonstrates a taller than wide hypoechoic mass with angulated indistinct margins at the 11:00 position 4 cm from the left nipple measuring 1.6 x 2.2 x 1.5 cm. Ultrasound-guided left breast biopsy of this mass is recommended. The patient has an appointment April 07 at 12:15 for ultrasound-guided biopsy. IMPRESSION: Findings highly suggestive of malignancy. RECOMMENDATION: Biopsy BIRADS CATEGORY 5 STANDARD QUALIFYING STATEMENTS: 1. This examination was not reviewed with the aid of Computer-Aided Detection (CAD). 2. A negative or benign imaging report should not delay biopsy if clinically suspicious findings are present. Consider surgical consultation if warrented. More than 5% of cancers are not identified by imaging. 3. Dense breasts may obscure an underlying neoplasm.
== END 2018-03-26 12:54 | disposition home or self-care (01) ==
LOC: DI 12:53
PROVIDERS: ATTEND Obstetrics & Gynecology
DX: N63.22 Unspecified lump in the left breast, upper inner quadrant (principal); N63.21 Unspecified lump in the left breast, upper outer quadrant
CPT/HCPCS: 76642; 77066

== ENCOUNTER 2018-04-07 12:00 | Outpatient (CLI) | payer MEDICAID ==
[2018-04-07] MEDS ORDERED: BUPIVACAINE 0.5%-EPI 1:200000 PF 30 ML VIAL SUBQ ONE (14:21)
[2018-04-07] MEDS: BUFFERED LIDOCAINE 10 ML SYRINGE IU ONE (14:26)
--- NOTE | 2018-04-07 16:07 | Mammography Report ---
Reason: ABN MAMMO - LT BREAST MASS Procedure Date: 04/07/2018 Accession Number: [id number] / [id number] Procedure: CHANCE - Diagnostic Dig LT CPT Code: FULL RESULT: PROCEDURE: Ultrasound-guided needle biopsy left breast mass. CLINICAL DATA: Targeted mass measuring 1.6 x 2.2 x 1.5 cm with irregular margins in the 11 o'clock axis of the left breast. Informed consent was obtained. Using standard aseptic technique, both 1% buffered lidocaine and Sensorcaine were injected into the left breast for local anesthesia. A small filippo was made in the skin with a #11 blade. A 12-gauge several vacuum-assisted device was used to obtain 4 core specimens. A specialized biopsy marker clip was placed into the biopsy cavity under ultrasound guidance. The patient was taken to separate mammography machine and a two-view digital mammography was performed to verify the clip placement and any complications. The mammography showed concordant clip placement. The wound was dressed and ice applied. The patient was observed for approximately 15 minutes, then was discharged from diagnostic imaging Department in good condition following instructions on wound care and obtaining biopsy results. The patient is scheduled to receive the biopsy results from the referring physician. The tissue was sent for histologic analysis. IMPRESSION: Ultrasound-guided biopsy of the left breast. AN ADDENDUM WILL REMAIN TO THIS REPORT WHEN PATHOLOGY IS REVIEWED TO ESTABLISH CONCORDANCE.
--- NOTE | 2018-04-13 09:13 | Ultrasound Report ---
Reason: ABN MAMMO - LT BREAST MASS Procedure Date: 04/07/2018 Accession Number: [id number] / [id number] Procedure: US - Biopsy Breast Core CPT Code: FULL RESULT: PATHOLOGY ADDENDUM: Procedure performed by Dr. Colon. Pathology reviewed by Dr. Lynn. 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 Results are concordant with the imaging findings. Surgical consultation is suggested. BI-RADS 6 known malignancy. EXAM: Biopsy Breast Core DATE: 04/07/2018 2:40 PM CLINICAL HISTORY: ABN MAMMO - LT BREAST MASS TECHNIQUE: PROCEDURE: Ultrasound-guided needle biopsy left breast mass. CLINICAL DATA: Targeted mass measuring 1.6 x 2.2 x 1.5 cm with irregular margins in the 11 o'clock axis of the left breast. Informed consent was obtained. Using standard aseptic technique, both 1% buffered lidocaine and Sensorcaine were injected into the left breast for local anesthesia. A small filippo was made in the skin with a #11 blade. A 12-gauge several vacuum-assisted device was used to obtain 4 core specimens. A specialized biopsy marker clip was placed into the biopsy cavity under ultrasound guidance. The patient was taken to separate mammography machine and a two-view digital mammography was performed to verify the clip placement and any complications. The mammography showed concordant clip placement. The wound was dressed and ice applied. The patient was observed for approximately 15 minutes, then was discharged from diagnostic imaging Department in good condition following instructions on wound care and obtaining biopsy results. The patient is scheduled to receive the biopsy results from the referring physician. The tissue was sent for histologic analysis. IMPRESSION: Ultrasound-guided biopsy of the left breast. AN ADDENDUM WILL REMAIN TO THIS REPORT WHEN PATHOLOGY IS REVIEWED TO ESTABLISH CONCORDANCE.
== END 2018-04-07 12:01 | disposition home or self-care (01) ==
LOC: DI 12:00
PROVIDERS: ATTEND Obstetrics & Gynecology
DX: C50.212 Malignant neoplasm of upper-inner quadrant of left female breast (principal); Z17.0 Estrogen receptor positive status [ER+]
CPT/HCPCS: 19083

== ENCOUNTER 2018-11-23 11:17 | Emergency (ER) | payer MEDICAID ==
--- NOTE | 2018-11-23 12:15 | XRAY Report ---
Reason: sob Procedure Date: 11/23/2018 Accession Number: [id number] / [id number] Procedure: XR - Chest 1 View X-Ray CPT Code: 49839 FULL RESULT: EXAM: CHEST RADIOGRAPHY EXAM DATE: 11/23/2018 12:04 PM. CLINICAL HISTORY: Shortness of breath. History of asthma. On chemotherapy for breast cancer. COMPARISON: XR CHEST 1 VIEW POST PROCEDURE 07/23/2018 1:[address] [facility] [address] CHEST, ABDOMEN W/CONTRAST 07/05/2018 9:31 AM. TECHNIQUE: 1 view. FINDINGS: Lungs/Pleura: No focal consolidation evident. No pleural effusion. No pneumothorax. Subpleural fat along right costophrenic angle. Mediastinum: Within exam limitations, the cardiomediastinal contour is normal. Other: Right IJ Port-A-Cath with tip overlying lower third of SVC. Surgical clips overlie lateral left hemithorax. IMPRESSION: No consolidation evident. RADIA
[2018-11-23] MEDS ORDERED: IPRATROPIUM/ALBUTEROL 3 ML NEB INH STA ×2 (12:30→13:04)
[2018-11-23 12:32] LABS: BASOPHILS % (AUTO) 0.5 %; EOSINOPHILS % (AUTO) 0.1 %; HGB - HEMOGLOBIN 13.4 g/dL (12.0-16.0); LYMPHOCYTES # (AUTO) 0.4 10^3/uL (1.5-3.5); LYMPHOCYTES % (AUTO) 7.5 %; MEAN CORPUSCULAR HEMOGLOBIN 33.3 pg (27.0-31.0); MEAN CORPUSCULAR HGB CONC 34.1 g/dL (32.0-36.0); MEAN CORPUSCULAR VOLUME 97.5 fL (81.0-99.0); MONOCYTES # (AUTO) 0.4 10^3/uL (0.0-1.0); MONOCYTES % (AUTO) 7.2 %; NEUTROPHILS # (AUTO) 4.7 10^3/uL (1.5-6.6); NEUTROPHILS % (AUTO) 84.7 %; PLT - PLATELET COUNT 483 10^3/uL (130-450); RED BLOOD COUNT 4.03 10^6/uL (4.20-5.40); RED CELL DISTRIBUTION WIDTH 16.3 % (12.0-15.0); WHITE BLOOD COUNT 5.6 x10^3/uL (4.8-10.8)
[2018-11-23 12:45] LABS: ALBUMIN 4.5 g/dL (3.2-5.5); ALBUMIN/GLOBULIN RATIO 1.2 (1.0-2.2); BILIRUBIN,TOTAL 0.5 mg/dL (0.2-1.0); CREATININE 0.5 mg/dL (0.4-1.0); TOTAL PROTEIN 8.2 g/dL (6.7-8.2)
[2018-11-23] MEDS ORDERED: cefTRIAXone 1 GM in SODIUM CHLORIDE 0.9% MINIBAG 100 ML IV STA (13:04)
--- NOTE | 2018-11-23 13:06 | ED Physician Documentation ---
PD HPI DYSPNEA - Stated complaint Stated Complaint: SOA - Chief complaint Chief Complaint: Resp - History obtained from History obtained from: Patient, Family - History of Present Illness Timing - onset: How many days ago (5) Timing - onset during: Rest Timing - duration: Days (5) Timing - details: Gradual onset, Still present Inciting event(s): URI Improved by: Inhaler/neb, Steroids Worsened by: Exertion, Coughing Associated symptoms: Cough, Wheezing, Chest pain / discomfort. No: Fever Similar symptoms before: Diagnosis (asthma excacerbation) Recently seen: Other - Additional information Additional information: 58-year-old female with a history of asthma is undergoing chemotherapy for breast cancer and she has recently been to a get together where several people developed upper respiratory infection following the get together. She has developed URI with cough productive of clear phlegm and shortness of breath. She has had increased shortness of breath despite using her rescue inhaler and her usual Advair twice daily and she has increased her prednisone intake yesterday. She usually is taking 10 mg twice per day she took an extra 2 doses yesterday for a total of 40 mg. Despite that she continues to have some shortness of breath and is come to the emergency department for the first time with her asthma Review of Systems Constitutional: denies: Fever Eyes: denies: Decreased vision Ears: denies: Ear pain Nose: reports: Congestion. denies: Rhinorrhea / runny nose Throat: denies: Sore throat Cardiac: reports: Chest pain / pressure. denies: Palpitations, Pedal edema, Calf pain Respiratory: reports: Dyspnea, Cough, Wheezing GI: denies: Abdominal Pain, Nausea, Vomiting : denies: Dysuria, Frequency PD PAST MEDICAL HISTORY - Past Medical History Past Medical History: Yes Cardiovascular: Valve disorder Respiratory: Asthma Neuro: None Endocrine/Autoimmune: None GI: None, Other : None HEENT: None Psych: Depression, Anxiety Musculoskeletal: Osteoarthritis, Other Derm: None Other Past Medical History: breast ca on left side. 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, Breast implants Cardiovascular: Valve replacement - Present Medications Home Medications: Ambulatory Orders Medication Instructions Recorded Confirmed Albuterol Sulf [Ventolin Hfa 2 puffs INH PRN PRN 05/12/16 03/03/18 Inhaler] Estradiol 0.5 mg PO DAILY 05/12/16 03/02/18 Fluticasone/Salmeterol 250/50 1 puffs INH BID 05/12/16 03/03/18 [Advair 250 Mcg/50 Mcg] Zolpidem [Ambien] 5 mg PO DAILY PRN 05/12/16 03/02/18 predniSONE [Prednisone] 10 mg PO BID PRN 05/12/16 03/03/18 Azithromycin [Zithromax] 250 mg PO DAILY #6 tablet 11/23/18 Benzonatate [Tessalon Perle] 100 - 200 mg PO TID PRN #30 capsule 11/23/18 Hydrocodone/Acetaminophen 1 - 2 each PO Q6H PRN #14 tablet 11/23/18 [Hydrocodon-Acetaminophen 5-325] predniSONE [Deltasone] 10 mg PO ONCE #26 tablet 11/23/18 - Allergies Allergies/Adverse Reactions: Allergies Allergy/AdvReac Type Severity Reaction Status Date / Time silver Allergy Rash Verified 11/23/18 13:12 [From [employer] Mesh] - Social History Does the pt smoke?: No Smoking Status: Former smoker Does the pt drink ETOH?: No Does the pt have substance abuse?: No PD ED PE NORMAL - Vitals Vital signs reviewed: Yes (tachy tachypneic and hypertensive) - General General: Alert and oriented X 3, No acute distress, Well developed/nourished - HEENT HEENT: Atraumatic, PERRL, EOMI, Ears normal, Other (dry mucous membranes ) - Neck Neck: Supple, no meningeal sign, No bony TTP - Cardiac Cardiac: No murmur, Other (tachy to 110) - Respiratory Respiratory: Other (short shallow breaths with diminished breath sounds and scattered wheezes and rhonchi. 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, No motor deficit, No sensory deficit, Normal speech Eye Opening: Spontaneous Motor: Obeys Commands Verbal: Oriented GCS Score: 15 - Psych Psych: Normal mood, Normal affect Results - Vitals Vitals: Vital Signs - 24 hr 11/23/18 11/23/18 11/23/18 11:21 12:45 13:00 Temperature 36.8 C Heart Rate 123 H 119 H 105 H Respiratory 26 H 24 18 Rate Blood Pressure 192/114 H O2 Saturation 92 93 11/23/18 13:49 Temperature 37.0 C Heart Rate 112 H Respiratory 20 Rate Blood Pressure 169/104 H O2 Saturation 97 Oxygen O2 Source Room air - Labs Labs: Laboratory Tests 11/23/18 11/23/18 12:20 12:20 WBC 5.6 RBC 4.03 L Hgb 13.4 Hct 39.3 MCV 97.5 MCH 33.3 H MCHC 34.1 RDW 16.3 H Plt Count 483 H MPV 7.0 L Neut # (Auto) 4.7 Lymph # (Auto) 0.4 L Hudson # (Auto) 0.4 Eos # (Auto) 0.0 Baso # (Auto) 0.0 Absolute Nucleated RBC 0.01 Nucleated RBC % 0.1 Sodium 139 Potassium 4.1 Chloride 100 L Carbon Dioxide 28 Anion Gap 11.0 BUN 15 Creatinine 0.5 Estimated GFR (MDRD) 126 Glucose 103 H Calcium 10.0 Total Bilirubin 0.5 AST 30 ALT 35 Alkaline Phosphatase 69 Total Protein 8.2 Albumin 4.5 Globulin 3.7 Albumin/Globulin Ratio 1.2 Lipase 26 - Rads (name of study) chest Radiology: Prelim report reviewed (Impression: no consolidation evident.), EMP read indepedently, See rad report PD MEDICAL DECISION MAKING - ED course Complexity details: reviewed old records, reviewed results, re-evaluated patient, considered differential, d/w patient, d/w family ED course: 58-year-old female undergoing chemotherapy for breast cancer has developed cough and congestion with exacerbation of her asthma and here in the emergency department she is administered Solu-Medrol Rocephin and a DuoNeb treatment. We will increase her daily prednisone to an acute taper and provide antibiotic. Departure - Departure Disposition: 01 Home, Self Care Clinical Impression: Acute asthma exacerbation Qualifiers: Asthma severity: moderate Asthma persistence: persistent Qualified Code(s): J45.41 - Moderate persistent asthma with (acute) exacerbation Condition: Stable Instructions: ED Bronchitis Asthmatic Follow-Up: Michael Garcia MD [Primary Care Provider] - Prescriptions: Azithromycin [Zithromax] 250 mg PO DAILY #6 tablet Benzonatate [Tessalon Perle] 100 - 200 mg PO TID PRN #30 capsule PRN Reason: Cough Hydrocodone/Acetaminophen [Hydrocodon-Acetaminophen 5-325] 1 - 2 each PO Q6H PRN #14 tablet PRN Reason: pain predniSONE [Deltasone] 10 mg PO ONCE #26 tablet
[2018-11-23] MEDS ORDERED: SODIUM CHLORIDE 0.9% 1,000 ML IV ONE (13:08)
[2018-11-23] MEDS ORDERED: methylPREDNISolone SUCCINATE 125 MG/2 ML VIAL IVP STA (13:08)
[2018-11-23 15:03] VITALS: BP 162/90
== END 2018-11-23 15:03 | disposition home or self-care (01) ==
LOC: ED 11:17
DX: J45.41 Moderate persistent asthma with (acute) exacerbation (principal); C50.912 Malignant neoplasm of unspecified site of left female breast; Z79.899 Other long term (current) drug therapy; Z87.891 Personal history of nicotine dependence
CPT/HCPCS: 36415; 71045; 80053; 83690; 85025; 94640; 96374; 96375; 99283

== ENCOUNTER 2019-05-29 11:35 | Emergency (ER) | payer MEDICAID ==
[2019-05-29 11:43] VITALS: BP 133/102
--- NOTE | 2019-05-29 13:13 | ED Physician Documentation ---
PD HPI DYSPNEA - Stated complaint Stated Complaint: SOA - Chief complaint Chief Complaint: Resp - History obtained from History obtained from: Patient - History of Present Illness Timing - onset: How many days ago (3-4) Timing - onset during: Light activity Timing - details: Gradual onset, Still present, Still present in ED Inciting event(s): No: Allergic rxn/anaphylaxis Improved by: No: Inhaler/neb, Steroids Worsened by: Exertion Associated symptoms: Cough, Wheezing, Chest pain / discomfort. No: Fever, Palpitations, Bilateral edema Similar symptoms before: Diagnosis Recently seen: Clinic - Additional information Additional information: This is a 59-year-old woman who presents with complaints that her lungs are "full of fluid". She has a history of asthma and went to see her primary care provider last week because she was starting to get a little bit of worsening asthma. At that time there were not any acute interventions done but over the weekend things have gotten much worse. She feels very short of breath with exertion and she is not getting any relief with her DuoNeb nebulizer or Ventolin inhaler. She has prednisone at home so she took 30 mg yesterday and 20 mg this morning. She is been coughing up initially clear phlegm that is now turned a little green and she is feeling lightheaded like she might black out. She feels like the wonder drug Z-Kevin would care everything. Of note the patient recently went on a cruise to [place] she just came home last week and she had norovirus on that cruise and was quite sick with vomiting and diarrhea. She also has a history of breast cancer and underwent radiation and chemotherapy receiving her last radiation last March. She is complaining that her lungs hurt like a "ton of bricks" is sitting on her chest. She has no fever. No nausea or vomiting. She last used her inhaler about 3 hours prior to presentation. Review of Systems Constitutional: denies: Fever Nose: denies: Rhinorrhea / runny nose Throat: denies: Sore throat Cardiac: reports: Chest pain / pressure. 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, Breast implants Cardiovascular: Valve replacement - Present Medications Home Medications: Ambulatory Orders Medication Instructions Recorded Confirmed Albuterol Sulf [Ventolin Hfa 2 puffs INH PRN PRN 05/12/16 03/03/18 Inhaler] Fluticasone/Salmeterol 250/50 1 puffs INH BID 05/12/16 03/03/18 [Advair 250 Mcg/50 Mcg] Zolpidem [Ambien] 5 mg PO DAILY PRN 05/12/16 03/02/18 Hydrocodone/Acetaminophen 1 - 2 each PO Q6H PRN #14 tablet 11/23/18 [Hydrocodon-Acetaminophen 5-325] Anastrozole 0 mg 05/29/19 Azithromycin [Zithromax] 0 mg PO DAILY #6 tablet 05/29/19 Hydrocodone/Chlorphen P-Stirex 5 ml PO BID #100 lev.er.12h 05/29/19 [Hydrocodone-Chlorphen ER Susp] Venlafaxine HCl 25 mg PO 05/29/19 Zolpidem [Ambien] 10 mg PO HS 05/29/19 05/29/19 amLODIPine [Norvasc] 5 mg PO DAILY 05/29/19 05/29/19 predniSONE [Deltasone] 20 mg PO ONCE 05/29/19 - Allergies Allergies/Adverse Reactions: Allergies Allergy/AdvReac Type Severity Reaction Status Date / Time silver Allergy Rash Verified 05/29/19 11:43 [From [employer] Mesh] - Social History Does the pt smoke?: No Smoking Status: Never smoker Does the pt drink ETOH?: No Does the pt have substance abuse?: No PD ED PE NORMAL - Vitals Vital signs reviewed: Yes - General General: Alert and oriented X 3, No acute distress, Well developed/nourished - HEENT HEENT: Atraumatic, PERRL, Moist mucous membranes, Pharynx benign - Neck Neck: No adenopathy, Thyroid normal - Cardiac Cardiac: RRR, No murmur - Respiratory Respiratory: No respiratory distress, Other (There is diffuse inspiratory next Tory wheezing heard throughout the lung hutton. She is able to speak in normal sentences.) - Abdomen Abdomen: Normal bowel sounds, Soft - Derm Derm: Normal color, Warm and dry, No rash - Extremities Extremities: No edema - Neuro Neuro: Alert and oriented X 3, No motor deficit, No sensory deficit, Normal speech - Psych Psych: Normal mood, Normal affect Results - Vitals Vitals: Vital Signs - 24 hr 05/29/19 11:41 Temperature 36.8 C Heart Rate 108 H Respiratory 20 Rate Blood Pressure 133/102 H O2 Saturation 93 Oxygen O2 Source Room air - EKG (time done) 1154 Rate: Rate (enter#) (101), Tachy Rhythm: Sinus tachycardia Intervals: Normal CO. No: Wide QRS Ischemia: Normal ST segments Compare to prior EKG: Old EKG unavailable PD MEDICAL DECISION MAKING - ED course Complexity details: d/w patient ED course: Patient was offered a nebulizer here but stated that she did not feel it was necessary she has the DuoNeb and inhalers at home she just feels that the Z-Kevin is in order and would also like some hydrocodone cough syrup because her rib cage is hurting from all the coughing. She is already started herself on prednisone and can continue that dosing at home. Follow-up with her primary care provider if her symptoms are not improving return if she is worsening. Departure - Departure Disposition: 01 Home, Self Care Clinical Impression: Bronchitis Asthma Qualifiers: Asthma severity: moderate Asthma persistence: persistent Asthma complication type: with acute exacerbation Qualified Code(s): J45.41 - Moderate persistent asthma with (acute) exacerbation Condition: Good Instructions: ED Bronchitis Asthmatic Follow-Up: Michael Garcia MD [Primary Care Provider] - Prescriptions: Azithromycin [Zithromax] 0 mg PO DAILY #6 tablet Hydrocodone/Chlorphen P-Stirex [Hydrocodone-Chlorphen ER Susp] 5 ml PO BID #100 lev.er.12h Comments: Take the Z-Kevin as prescribed. Use the hydrocodone cough syrup 5 cc twice a day as needed for coughing. Do not drive or operate machinery if you are taking that medication. Continue on your dosing of prednisone at home for 5 days. Follow-up with your primary care provider if you are not improving and return to the emergency department if your symptoms are significantly worsening. Discharge Date/Time: 05/29/19 13:46
== END 2019-05-29 13:46 | disposition home or self-care (01) ==
LOC: ED 11:35
DX: J45.41 Moderate persistent asthma with (acute) exacerbation (principal); J40 Bronchitis, not specified as acute or chronic; R00.0 Tachycardia, unspecified
CPT/HCPCS: 93005; 99283; 99284

== ENCOUNTER 2022-05-25 14:19 | Inpatient (IN) | payer MEDICAID ==
--- NOTE | 2022-05-25 14:32 | ED Physician Documentation ---
PD HPI DYSPNEA - Stated complaint Stated Complaint: ASTHMA,SOA - Chief complaint Chief Complaint: Resp - History obtained from History obtained from: Patient - History of Present Illness Timing - onset: How many days ago (2-3) Timing - onset during: Light activity Timing - duration: Days (2-3 initially cough and malaise, with quick worsening of asthma/dyspnea despite home nebulizer.) Timing - details: Abrupt onset, Still present (much worse today, with multiple nebs at home without improvement.) Inciting event(s): URI (having cough, congestion and increased dyspnea, feeling of wheezing c/w exac of her asthma as well.). No: Out of meds, Immobilization/travel Improved by: Inhaler/neb (She was get getting some moderate improvement with her inhalers at first but then not so much.) Worsened by: Exertion (even light activity.), Coughing Associated symptoms: Fever, Cough, Wheezing. No: Hemoptysis, Chest pain / discomfort, Palpitations, Bilateral edema Similar symptoms before: Diagnosis (has had exac of asthma with URIs in the past and can get marked wheezing quickly.) Recently seen: Not recently seen Review of Systems Constitutional: reports: Fever, Chills, Myalgias Nose: reports: Rhinorrhea / runny nose, Congestion Throat: reports: Sore throat Cardiac: denies: Chest pain / pressure, Palpitations Respiratory: reports: Dyspnea, Cough, Wheezing GI: reports: Nausea. denies: Abdominal Pain, Vomiting, Diarrhea : denies: Dysuria, Frequency Skin: denies: Rash Neurologic: reports: Generalized weakness, Headache. denies: Near syncope, Altered mental status Immunocompromised: denies: Immunocompromised PD PAST MEDICAL HISTORY - Past Medical History Cardiovascular: Valve disorder Respiratory: Asthma Neuro: None Endocrine/Autoimmune: None GI: None, Other : None HEENT: None Psych: Depression, Anxiety Musculoskeletal: Osteoarthritis, Other Derm: None - Past Surgical History General: Colonoscopy, Other Ortho: Rotator cuff repair /STONER OUT: Hysterectomy, Breast implants Cardiovascular: Valve replacement - Present Medications Home Medications: Ambulatory Orders Medication Instructions Recorded Confirmed Albuterol Sulf [Ventolin Hfa 2 puffs INH PRN PRN 05/12/16 03/03/18 Inhaler] Fluticasone/Salmeterol 250/50 1 puffs INH BID 05/12/16 03/03/18 [Advair 250 Mcg/50 Mcg] Zolpidem [Ambien] 5 mg PO DAILY PRN 05/12/16 03/02/18 Hydrocodone/Acetaminophen 1 - 2 each PO Q6H PRN #14 tablet 11/23/18 [Hydrocodon-Acetaminophen 5-325] Anastrozole 0 mg 05/29/19 Azithromycin [Zithromax] 0 mg PO DAILY #6 tablet 05/29/19 Hydrocodone/Chlorphen P-Stirex 5 ml PO BID #100 lev.er.12h 05/29/19 [Hydrocodone-Chlorphen ER Susp] Venlafaxine HCl 25 mg PO 05/29/19 Zolpidem [Ambien] 10 mg PO HS 05/29/19 05/29/19 amLODIPine [Norvasc] 5 mg PO DAILY 05/29/19 05/29/19 predniSONE [Deltasone] 20 mg PO ONCE 05/29/19 - Allergies Allergies/Adverse Reactions: Allergies Allergy/AdvReac Type Severity Reaction Status Date / Time silver Allergy Rash Verified 05/25/22 14:29 [From [employer]esh] - Social History Does the pt smoke?: No Smoking Status: Never smoker Does the pt drink ETOH?: No Does the pt have substance abuse?: No PD ED PE NORMAL - Vitals Vital signs reviewed: Yes - General General: Well developed/nourished, Other (wheezing and accessory muscle use. Talking in partial sentences. ) - Neck Neck: Supple, no meningeal sign, No adenopathy - Cardiac Cardiac: No: RRR (regular but tachycardic) - Respiratory Respiratory: Other (No coarse sounds are heard.). No: Clear bilaterally (She is having tachypnea and partial sentence dyspnea. There is some accessory muscle work. She is able to converse partial sentences however. She is not appear tired. Diffuse wheezing noted.) - Abdomen Abdomen: Soft, Non tender - Derm Derm: Normal color, Warm and dry, No rash - Extremities Extremities: Normal ROM s pain, No edema, No calf tenderness / cord - Neuro Neuro: Alert and oriented X 3, No motor deficit, Normal speech Results - Vitals Vitals: Vital Signs - 24 hr 05/25/22 05/25/22 05/25/22 14:21 15:12 15:40 Temperature 37 C Heart Rate 114 H 84 Respiratory 24 18 Rate Blood Pressure 151/85 H O2 Saturation 85 L 87 L If not protocol : Oxygen Flow, liters/minute 05/25/22 05/25/22 05/25/22 15:48 16:03 17:00 Temperature Heart Rate 95 80 103 H Respiratory 18 18 20 Rate Blood Pressure 127/80 126/76 O2 Saturation 95 97 If not protocol 2 2 2 : Oxygen Flow, liters/minute Oxygen O2 Source Nasal cannula Oxygen Flow Rate 2 - Labs Labs: Laboratory Tests 05/25/22 05/25/22 05/25/22 15:08 15:08 15:08 WBC 4.7 L RBC 4.31 Hgb 13.5 Hct 41.9 MCV 97.2 MCH 31.3 H MCHC 32.2 RDW 13.9 Plt Count 274 MPV 9.2 Neut # (Auto) 4.3 Lymph # (Auto) 0.1 L [place] # (Auto) 0.2 Eos # (Auto) 0.0 Baso # (Auto) 0.0 Absolute Nucleated RBC 0.00 Nucleated RBC % 0.0 Sodium 139 Potassium 3.6 Chloride 102 Carbon Dioxide 28 Anion Gap 9.0 BUN 10 Creatinine 0.7 Estimated GFR (MDRD) 85 L Glucose 132 H Calcium 9.0 Magnesium 2.0 Total Bilirubin 0.6 AST 25 ALT 19 Alkaline Phosphatase 58 B-Natriuretic Peptide 174 H Total Protein 7.1 Albumin 4.0 Globulin 3.1 Albumin/Globulin Ratio 1.3 Lipase 23 Nasal Adenovirus (PCR) Nasal B. parapertussis DNA (PCR) Nasal Coronavir 229E PCR Nasal Coronavir HKU1 PCR Nasal Coronavir NL63 PCR Nasal Coronavir OC43 PCR Nasal Enterovir/Rhinovir PCR Nasal Influenza A H3 PCR Nasal Influenza B PCR Nasal Parainfluen 1 PCR Nasal Parainfluen 2 PCR Nasal Parainfluen 3 PCR Nasal Parainfluen 4 PCR Nasal RSV (PCR) Nasal B.pertussis DNA PCR Nasal C.pneumoniae (PCR) Raul Human Metapneumo PCR Nasal M.pneumoniae (PCR) Nasal SARS-CoV-2 (PCR) 05/25/22 15:12 WBC RBC Hgb Hct MCV MCH MCHC RDW Plt Count MPV Neut # (Auto) Lymph # (Auto) [place] # (Auto) Eos # (Auto) Baso # (Auto) Absolute Nucleated RBC Nucleated RBC % Sodium Potassium Chloride Carbon Dioxide Anion Gap BUN Creatinine Estimated GFR (MDRD) Glucose Calcium Magnesium Total Bilirubin AST ALT Alkaline Phosphatase B-Natriuretic Peptide Total Protein Albumin Globulin Albumin/Globulin Ratio Lipase Nasal Adenovirus (PCR) NOT DETECTED Nasal B. parapertussis DNA (PCR) NOT DETECTED Nasal Coronavir 229E PCR NOT DETECTED Nasal Coronavir HKU1 PCR NOT DETECTED Nasal Coronavir NL63 PCR NOT DETECTED Nasal Coronavir OC43 PCR NOT DETECTED Nasal Enterovir/Rhinovir PCR NOT DETECTED Nasal Influenza A H3 PCR DETECTED A Nasal Influenza B PCR NOT DETECTED Nasal Parainfluen 1 PCR NOT DETECTED Nasal Parainfluen 2 PCR NOT DETECTED Nasal Parainfluen 3 PCR NOT DETECTED Nasal Parainfluen 4 PCR NOT DETECTED Nasal RSV (PCR) NOT DETECTED Nasal B.pertussis DNA PCR NOT DETECTED Nasal C.pneumoniae (PCR) NOT DETECTED Raul Human Metapneumo PCR NOT DETECTED Nasal M.pneumoniae (PCR) NOT DETECTED Nasal SARS-CoV-2 (PCR) NOT DETECTED - Rads (name of study) chest xray Radiology: Prelim report reviewed (no infiltrates. ), See rad report PD MEDICAL DECISION MAKING - ED course Complexity details: reviewed results, re-evaluated patient (Improved respiratory status and able to talk in sentences and much decreased wheezing. However on room air still decreasing to 87% saturations. Maintaining 94% on 2 L nasal cannula.), considered differential, d/w patient, d/w territory sales consultant (hospitalist) Departure - Departure Disposition: ED Place in Observation Clinical Impression: Hypoxia Upper respiratory infection Qualifiers: URI type: unspecified URI Qualified Code(s): J06.9 - Acute upper respiratory infection, unspecified Exacerbation of asthma Qualifiers: Asthma severity: mild Asthma persistence: intermittent Qualified Code(s): J45.21 - Mild intermittent asthma with (acute) exacerbation Condition: Stable Record reviewed to determine appropriate education?: Yes
[2022-05-25] MEDS ORDERED: IPRATROPIUM/ALBUTEROL 3 ML NEB INH STA ×2 (14:42→17:24)
[2022-05-25] MEDS ORDERED: DEXAMETHASONE 10 MG/ML VIAL IVP STA (14:43)
--- NOTE | 2022-05-25 15:01 | XRAY Report ---
PROCEDURE: Chest 1 View X-Ray INDICATIONS: chest pain TECHNIQUE: One view of the chest was acquired. COMPARISON: 11/15/2018 FINDINGS: Surgical changes and devices: None. Lungs and pleura: No pleural effusions or pneumothorax. No focal infiltrates are seen. There is st able blunting of the right costophrenic angle. Mediastinum: Mediastinal contours appear normal. Heart size is normal. Bones and chest wall: No suspicious bony lesions. Age-appropriate degenerative changes are seen. Overlying soft tissues appear unremarkable. IMPRESSION: No acute portable chest abnormality is seen. Stable blunting of the right costophrenic angle can be seen. Reviewed by: Marcus Andujar MD on 05/25/2022 2:00 PM [facility] Approved by: Marcus Andujar MD on 05/25/2022 2:00 PM [facility] Station ID: [id number]
[2022-05-25 15:15] LABS: BASOPHILS % (AUTO) 0.2 %; HCT - HEMATOCRIT 41.9 % (37.0-47.0); HGB - HEMOGLOBIN 13.5 g/dL (12.0-16.0); LYMPHOCYTES # (AUTO) 0.1 10^3/uL (1.5-3.5); LYMPHOCYTES % (AUTO) 2.6 %; MEAN CORPUSCULAR HEMOGLOBIN 31.3 pg (27.0-31.0); MEAN CORPUSCULAR HGB CONC 32.2 g/dL (32.0-36.0); MEAN CORPUSCULAR VOLUME 97.2 fL (81.0-99.0); MEAN PLATELET VOLUME 9.2 fL (7.9-10.8); MONOCYTES # (AUTO) 0.2 10^3/uL (0.0-1.0); MONOCYTES % (AUTO) 4.5 %; NEUTROPHILS # (AUTO) 4.3 10^3/uL (1.5-6.6); NEUTROPHILS % (AUTO) 92.5 %; PLT - PLATELET COUNT 274 10^3/uL (130-450); RED BLOOD COUNT 4.31 10^6/uL (4.20-5.40); RED CELL DISTRIBUTION WIDTH 13.9 % (12.0-15.0); WHITE BLOOD COUNT 4.7 x10^3/uL (4.8-10.8)
[2022-05-25 15:30] LABS: ALBUMIN/GLOBULIN RATIO 1.3 (1.0-2.2); BILIRUBIN,TOTAL 0.6 mg/dL (0.2-1.0); CREATININE 0.7 mg/dL (0.4-1.0); POTASSIUM 3.6 mmol/L (3.5-5.0); TOTAL PROTEIN 7.1 g/dL (6.7-8.2)
[2022-05-25] MEDS ORDERED: ALBUTEROL NEB 2.5 MG/3 ML INH STA (15:40)
[2022-05-25] MEDS ORDERED: ONDANSETRON ODT 4 MG TABLET TL PRN (17:05)
[2022-05-25] MEDS ORDERED: ONDANSETRON 4 MG/2 ML VIAL IVP PRN (17:05)
[2022-05-25] MEDS ORDERED: ACETAMINOPHEN 325 MG TABLET PO PRN (17:05)
[2022-05-25] MEDS ORDERED: FORMOTEROL FUMARATE NEB 20 MCG/2 ML INH STA (17:08)
[2022-05-25] MEDS ORDERED: ALBUTEROL NEB 2.5 MG/3 ML INH PRN (17:08)
--- NOTE | 2022-05-25 17:15 | HISTORY & PHYSICAL EXAMINATION ---
Chief Complaint - Chief Complaint Chief Complaint: aches and worsening asthma History of Present Illness - Admitted From Admitted From:: home - History Obtained From Records Reviewed: [facility] History obtained from: patient Exam Limitations: none - History of Present Illness HPI Comment/Other: She has had asthma all of her life. Probably since about the age of 19. She does inhalers, including inhaled steroids, and occasional oral steroids. But she has never been intubated for it. 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 She does admit that sometimes, especially the summer, she can see the dust from the farm yard as she is working outside. She does not think her asthma is worse with this. She went to [place] for weekend. She was with her children and grandchildren. On the way back from [place], yesterday, she started feeling aching chills in the in the car. Last night she started having coughing and wheezing and last night was very difficult for her because she could not breathe. Even after taking her metered-dose inhalers at home she was still short of breath today and came to the emergency room. She denies phlegm production. But she is coughing, short of breath, wheezing. No change in bowel or bladder habits. However she is starting to get bowel cramping again. She had a vaginal hysterectomy and oophorectomy with cystoscopy in 2015. Within 6 months she developed severe adhesions with severe pelvic pain and bowel cramping. She underwent a lysis of adhesions in December 2016 and then a second lysis of adhesions in 2017. In the last few months she has been taking care of her "chunk of her grandson" and she feels like her lower abdominal cramping is returning. She denies headache, syncope, seizures. When she presented to the emergency room her blood pressure was 151/85. Respirations 24. She was 85% on room air. Temperature was 37. She has wheezing, no use of accessory muscles. Chest x-ray is without infiltrate. She thinks she has the flu. The respiratory panel has been ordered but pending. In spite of 2 nebulizer treatments and steroids in the emergency room, she is still 87% on room air. Requiring 2 L nasal cannula O2 sat at 97% or 95%. The case was discussed with the emergency room provider. He is asking the patient be placed in observation to continue to control her asthma symptoms. History - Past Medical History Cardiovascular: reports: Hypertension, Valve disorder Respiratory: reports: Asthma Neuro: reports: None Endocrine/Autoimmune: reports: None GI: reports: Other APPLICATIONS MANAGER: reports: Breast cancer (Status post lumpectomy, lymph node dissection, chemotherapy, radiation. Refuses anastrozole because it gave her severe hot flashes), Other (Postmenopausal bleeding. Lap hysterectomy April 2016. Pelvic pain with lysis of adhesions 2016 and 2017) : reports: None HEENT: reports: None Psych: reports: Depression, Anxiety Musculoskeletal: reports: Osteoarthritis, Other Derm: reports: None MRSA Hx?: No Other Past Medical History: -0-1-3 - Past Surgical History General: reports: Colonoscopy, Other Ortho: reports: Rotator cuff repair /APPLICATIONS MANAGER: reports: Hysterectomy, Breast implants Cardiovascular: reports: Valve replacement - Family & Social History Family History Comment/Other: Dad at age 65 of probable diffusely metastatic prostate cancer. Mom at age 84 of bladder cancer. 1 sister at 62 of uterine cancer. 3 children are healthy. 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 Lives in [place] [facility]. Works at [employer]. Started smoking during COVID and probably does 1 pack a week. No history of alcohol abuse. No history of recreational substance abuse. Lives with a friend/roommate. 1 child in [place], 1 child in [place], 1 child Here. If there is a POA it's her sister. - Substance History Abuse: Recurrent use of substance despite neg consequences: Other (tobacco) Abuse Issues: Other (asthma exacerbation) Dependence: Experiences withdrawal or developed tolerances: NONE - POLST Patient has POLST: No POLST Status: Full Code Meds/Allgy - Home Medications Home Medications: Ambulatory Orders Medication Instructions Recorded Confirmed Albuterol Sulf [Ventolin Hfa 2 puffs INH PRN PRN 05/12/16 03/03/18 Inhaler] Fluticasone/Salmeterol 250/50 1 puffs INH BID 05/12/16 03/03/18 [Advair 250 Mcg/50 Mcg] Zolpidem [Ambien] 5 mg PO DAILY PRN 05/12/16 03/02/18 Hydrocodone/Acetaminophen 1 - 2 each PO Q6H PRN #14 tablet 11/23/18 [Hydrocodon-Acetaminophen 5-325] Anastrozole 0 mg 05/29/19 Azithromycin [Zithromax] 0 mg PO DAILY #6 tablet 05/29/19 Hydrocodone/Chlorphen P-Stirex 5 ml PO BID #100 lev.er.12h 05/29/19 [Hydrocodone-Chlorphen ER Susp] Venlafaxine HCl 25 mg PO 05/29/19 Zolpidem [Ambien] 10 mg PO HS 05/29/19 05/29/19 amLODIPine [Norvasc] 5 mg PO DAILY 05/29/19 05/29/19 predniSONE [Deltasone] 20 mg PO ONCE 05/29/19 - Allergies Allergies/Adverse Reactions: Allergies Allergy/AdvReac Type Severity Reaction Status Date / Time silver Allergy Rash Verified 05/25/22 14:29 [From [employer] Mesh] Review of Systems - Constitutional Constitutional: reports: Fatigue, Fever, Chills, Malaise, Weakness, Poor appetite, Other (All of this started yesterday) - Eyes Eyes: denies: Pain, Irritation, Amaurosis, Blurred vision, Vision loss, Dipolpia - Ears, Nose & Throat Ears, Nose & Throat: reports: Nasal obstruction, Nasal congestion, Sore throat. denies: Ear pain, Hearing loss, Hearing aids, Tinnitus - Cardiovascular Cariovascular: reports: Other (Sharply decreased cardiovascular endurance after chemo and radiation. It took her a year or more to recover and she was supposed to be "in her year" this year). denies: Irregular heart rate, Palpitations, Chest pain, Edema, Syncope, Exertional dyspnea, Decr. exercise tolerance - Respiratory Respiratory: reports: Cough, Sputum production, Wheezing, SOB at rest, SOB with exertion. denies: Snoring - Gastrointestinal Gastrointestinal: reports: Abdominal pain (Recurrence of lower pelvic cramping). denies: Abdominal distention, Constipation, Diarrhea, Change in bowel habits, Rectal bleeding, Black stools, Bloody stools - Genitourinary Genitourinary: reports: Incontinence. denies: Dysuria, Frequency, Urgency - Musculoskeletal Musculoskeletal: reports: Muscle pain (Since yesterday), Joint pain (Proximal interphalangeal joints, and base of thumbs. No swelling, redness, heat.) - Integumentary Integumentary: denies: Rash, Pruritis, Lesions, Dryness - Neurological Neurological: reports: General weakness. denies: Focal weakness, Headache, Dizziness, Memory problems, Pre-existing deficit, Abnormal gait, Seizures, Incoordination - Psychiatric Psychiatric: reports: Depression, Anxiety. denies: Suicidal, Delusions, Hallucinations - Endocrine Endocrine: denies: Polyuria, Polydypsia, Polyphagia - Hematologic/Lymphatic Hematologic/Lymphatic: denies: Anemia, Bruising, Petechiae Prior Level of Functionality: Works full-time and runs a hobby farm. No use of durable medical equipment. Drives a car. Pays bills. Cleans house. Exam - Vital Signs Reviewed Vital Signs: Yes Vital Signs: Vital Signs x48h Temp Pulse Resp BP Pulse Ox O2 Flow Rate 05/25/22 16:03 80 18 2 05/25/22 15:48 95 18 127/80 95 2 05/25/22 15:40 87 L 05/25/22 15:12 84 18 05/25/22 14:21 37 C 114 H 24 151/85 H 85 L - Physical Exam General Appearance: positive: No acute distress, Alert, Other (Sitting upright in ER bed, nasal tone of voice, looks a little fatigued but no use of accessory muscles.) Eyes Bilateral: positive: PERRL, EOMI ENT: positive: No signs of dehydration Neck: positive: No JVD. negative: Stiff neck Respiratory: positive: No respiratory distress, Wheezes. negative: Rales, Rhonchi Cardiovascular: positive: Regular rate & rhythm. negative: Systolic murmur Peripheral Pulses: positive: 1+ Abdomen: positive: Non-tender, No organomegaly, Nml bowel sounds, No distention Skin: positive: Warm, Dry Extremities: positive: Full ROM, Nml appearance, No pedal edema, Other (Good do rsalis pedis pulses) Neurologic/Psychiatric: positive: Oriented x3, CN's nml (2-12), Motor nml Conclusion/Plan - Problem List (1) Status asthmaticus, non-allergic Conclusion/Plan: At this time she presents with symptoms of a viral illness, abrupt myalgias, arthralgias, fevers, and URI symptoms. Her viral panel is still pending. She is hypoxic but this current episode of asthma. She also is smoking as a new endeavor for the last 2 years. Plan: Observation status Strongly encouraged to stop smoking, rather I demanded she stop smoking Solu-Medrol 40 mg IV push 3 times daily x3 doses Budesonide via inhalation Perforomist via inhalation DuoNeb 4 times daily Albuterol as needed Review viral panel to see if she is a candidate for Tamiflu tonight or Paxlovid starting tomorrow (2) Hypoxia Conclusion/Plan: Associated with her acute asthma exacerbation. I would anticipate she will improve overnight. Continue to give nasal cannula oxygen to supplement and recheck tomorrow morning. (3) Hypertension Conclusion/Plan: Norvasc resumed. She did not realize that amlodipine/Norvasc was a blood pressure pill. She knew that her blood pressure was "a little high" but did not understand that she has a diagnosis of hypertension. Qualifiers: Hypertension type: primary hypertension Qualified Code(s): I10 - Essential (primary) hypertension (4) Pelvic pain in female Conclusion/Plan: This is recurrent pelvic pain that she has had with adhesions due to a hysterectomy. Right now she feels like the symptoms are early, and could go away on their own. If she needs to get follow-up, I did explain to her that her previous machine trimmer is in [place] in her own office. She could always go back to her. That would be Dr. Gail Mckee (5) Hot flashes related to aromatase inhibitor therapy Conclusion/Plan: She said that is why she could not tolerate taking anastrozole. It was so severe. Between the chemo, radiation and the anastrozole she is utterly miserable. I will resume her venlafaxine. I have encouraged her to make sure she takes calcium 500 mg p.o. 3 times daily and 800 international units of vitamin D a day - Lab Results Lab results reviewed: Yes Fish Bones: 05/25/22 15:08 05/25/22 15:08 - Diagnostic Imaging Results Diagnostic Imaging Results: positive: Final report reviewed Core Measures - Anticipated LOS I expect patient to be DC'd or transferred within 96 hours.: Yes - DVT/VTE - Prophylaxis VTE/DVT Device ordered at admit?: Yes
[2022-05-25 17:58] LABS: B. PARAPERTUSSIS- RESP PCR PAN NOT DETECTED; B. PERTUSSIS- RESP PCR PANEL NOT DETECTED; C. PNEUMONIAE- RESP PCR PANEL NOT DETECTED; CORONAVIRUS 229E-RESP PCR NOT DETECTED; CORONAVIRUS HKU1-RESP PCR NOT DETECTED; CORONAVIRUS NL63-RESP PCR NOT DETECTED; CORONAVIRUS OC43-RESP PCR NOT DETECTED; HUMAN METAPNEUMOVIRUS NOT DETECTED; INFLUENZA A H3- RESP PCR PANEL DETECTED; INFLUENZA B - RESP PCR PANEL NOT DETECTED; M. PNEUMONIAE- RESP PCR PANEL NOT DETECTED; PARAINFLUENZA VIRUS 1 NOT DETECTED; PARAINFLUENZA VIRUS 2 NOT DETECTED; PARAINFLUENZA VIRUS 3 NOT DETECTED; PARAINFLUENZA VIRUS 4 NOT DETECTED; RHINOVIRUS/ENTEROVIRUS NOT DETECTED; RSV- RESP PCR PANEL NOT DETECTED; SARS-CoV-2 -RESP PCR PANEL NOT DETECTED
[2022-05-25] MEDS: BUDESONIDE 0.5 MG/2 ML NEB INH SCH (19:10)
[2022-05-25] MEDS: IPRATROPIUM/ALBUTEROL 3 ML NEB INH SCH (19:10)
[2022-05-25] MEDS: oxyCODONE 5 MG TABLET PO PRN (19:57)
[2022-05-25] MEDS: methylPREDNISolone SUCCINATE 40 MG/ML VIAL IVP SCH (22:13)
[2022-05-25] MEDS: OSELTAMIVIR 75 MG CAPSULE PO SCH (22:13)
[2022-05-25] MEDS: VENLAFAXINE 37.5 MG TABLET PO SCH (22:13)
[2022-05-25] MEDS: SODIUM CHLORIDE FLUSH 0.9% 10 ML SYRINGE IVP PRN (22:13)
[2022-05-25] MEDS: ZOLPIDEM 5 MG TABLET PO PRN (22:13)
[2022-05-26] MEDS: SODIUM CHLORIDE FLUSH 0.9% 10 ML SYRINGE IVP SCH ×3 (01:05→20:25)
[2022-05-26] MEDS: BUDESONIDE 0.5 MG/2 ML NEB INH SCH ×2 (06:30→18:26)
[2022-05-26] MEDS: IPRATROPIUM/ALBUTEROL 3 ML NEB INH SCH ×5 (06:30→18:26)
[2022-05-26] MEDS: oxyCODONE 5 MG TABLET PO PRN ×3 (06:53→20:26)
[2022-05-26] MEDS: methylPREDNISolone SUCCINATE 40 MG/ML VIAL IVP SCH ×2 (07:29→13:59)
[2022-05-26] MEDS: amLODIPine 5 MG TABLET PO SCH (08:39)
[2022-05-26] MEDS: OSELTAMIVIR 75 MG CAPSULE PO SCH ×2 (08:39→20:25)
[2022-05-26] MEDS: VENLAFAXINE 37.5 MG TABLET PO SCH ×2 (08:39→20:25)
--- NOTE | 2022-05-26 11:49 | PHARMACY PROGRESS NOTE ---
- Best Possible Medication History Admit Date and Time: 05/25/22 1701 Processed by: Pharmacy Medication History completed: Yes Secondary Source(s): Physician records, Pharmacy records, Insurance records As the person ultimately responsible for medication therapy, providers are able to order a medication from an existing home medication list in [facility] via the "Reconcile Routine" prior to Confirmation of that medication by developer support engineer. Such practice is discouraged except when the physician, in their clinical judgment, deems that a medical need exists for a medication without regard to previous use.
--- NOTE | 2022-05-26 12:57 | PROVIDER PROGRESS NOTE ---
Subjective - Prog Note Date Prog Note Date: 05/26/22 Prog Note Time: 12:55 - Subjective Pt reports feeling: Improved Subjective: She is feeling a little better then yesterday but still very short of breath without oxygen and is feeling body aches and fatigue from her influenza. No abdominal pain, nausea, vomiting, chest pain. Current Medications - Current Medications Current Medications: Active Medications Acetaminophen (Acetaminophen 325 Mg Tablet) 650 mg PO Q4HR PRN PRN Reason: Pain 1 to 4, or Fever Albuterol (Albuterol Neb 2.5 Mg/3 Ml) 2.5 mg INH Q2HR PRN PRN Reason: Wheezing Last Admin: 05/26/22 06:16 Dose: 2.5 mg Albuterol/Ipratropium (Ipratropium/Albuterol 3 Ml Neb) 3 ml INH RTQID COUNTS INCLUDE 234 BEDS AT THE [facility] Amlodipine Besylate (Amlodipine 5 Mg Tablet) 5 mg PO DAILY COUNTS INCLUDE 234 BEDS AT THE [facility] Last Admin: 05/26/22 08:39 Dose: 5 mg Budesonide (Budesonide 0.5 Mg/2 Ml Neb) 0.5 mg INH RTBID COUNTS INCLUDE 234 BEDS AT THE [facility] Last Admin: 05/26/22 06:30 Dose: 0.5 mg Methylprednisolone (Methylprednisolone Succinate 40 Mg/Ml Vial) 40 mg IVP TID COUNTS INCLUDE 234 BEDS AT THE [facility] Stop: 05/26/22 14:01 Last Admin: 05/26/22 07:29 Dose: 40 mg Ondansetron HCl (Ondansetron Odt 4 Mg Tablet) 4 mg TL Q6HR PRN PRN Reason: Nausea / Vomiting Ondansetron HCl (Ondansetron 4 Mg/2 Ml Vial) 4 mg IVP Q6HR PRN PRN Reason: Nausea / Vomiting Oseltamivir Phosphate (Oseltamivir 75 Mg Capsule) 75 mg PO BID COUNTS INCLUDE 234 BEDS AT THE [facility] Stop: 05/30/22 09:01 Last Admin: 05/26/22 08:39 Dose: 75 mg Oxycodone HCl (Oxycodone 5 Mg Tablet) 5 mg PO Q4HR PRN PRN Reason: Pain 5 to 7 Last Admin: 05/26/22 06:53 Dose: 5 mg Sodium Chloride (Sodium Chloride Flush 0.9% 10 Ml Syringe) 10 ml IVP PRN PRN PRN Reason: NEEDED PER PROVIDER ORDERS Last Admin: 05/25/22 22:13 Dose: 10 ml Sodium Chloride (Sodium Chloride Flush 0.9% 10 Ml Syringe) 10 ml IVP 0100,0900,1700 COUNTS INCLUDE 234 BEDS AT THE [facility] Last Admin: 05/26/22 08:39 Dose: 10 ml Venlafaxine HCl (Venlafaxine 37.5 Mg Tablet) 37.5 mg PO BID COUNTS INCLUDE 234 BEDS AT THE [facility] Last Admin: 05/26/22 08:39 Dose: 37.5 mg Zolpidem Tartrate (Zolpidem 5 Mg Tablet) 5 mg PO QPM PRN PRN Reason: Insomnia Last Admin: 05/25/22 22:13 Dose: 5 mg Albuterol Sulf [Ventolin Hfa Inhaler] 1 - 2 puffs INH Q4H PRN 05/12/16 Zolpidem [Ambien] 5 mg PO QPM PRN 05/12/16 amLODIPine [Norvasc] 5 mg PO DAILY 05/29/19 Cetirizine [ZyrTEC] 10 mg PO DAILY 05/26/22 Fluticasone Propion/Salmeterol [Fluticasone-Salmeterol 500-50] 1 puffs INH BID 05/26/22 Montelukast [Singulair] 10 mg PO QPM 05/26/22 Venlafaxine ER [Effexor ER] 75 mg PO DAILY 05/26/22 Objective - Vital Signs/Intake & Output Vital Signs: Vital Signs x48h Temp Pulse Pulse Resp BP Pulse Ox O2 Flow Rate 05/26/22 11:42 92 20 2 05/26/22 07:59 36.5 C 90 18 123/77 93 2 05/26/22 06:30 108 H 20 2 05/26/22 06:15 36.9 C 96 20 156/95 H 94 2 Intake & Output: Intake & Output 05/23/22 05/24/22 05/25/22 05/26/22 23:59 23:59 23:59 23:59 Intake Total 350 500 Balance 350 500 - Objective General Appearance: positive: No acute distress, Alert Eyes Bilateral: positive: PERRL, EOMI ENT: positive: Pharynx nml Neck: positive: Nml inspection, Trachea midline. negative: Lymphadenopathy (R), Lymphadenopathy (L), Stiff neck Respiratory: positive: Chest non-tender, No respiratory distress, Wheezes Cardiovascular: positive: Regular rate & rhythm, No murmur, No gallop Abdomen: positive: Non-tender, Nml bowel sounds, No distention Skin: positive: No rash, Warm Extremities: positive: Full ROM, No pedal edema Neurologic/Psychiatric: positive: Oriented x3, CN's nml (2-12), Motor nml, Sensation nml, Mood/affect nml - Lab Results Fish Bones: 05/25/22 15:08 05/25/22 15:08 Other Labs: Lab Results x24hrs 05/25/22 05/25/22 05/25/22 Range/Units 15:12 15:08 15:08 WBC (4.8-10.8) x10^3/uL RBC (4.20-5.40) 10^6/uL Hgb (12.0-16.0) g/dL Hct (37.0-47.0) % MCV (81.0-99.0) fL MCH (27.0-31.0) pg MCHC (32.0-36.0) g/dL RDW (12.0-15.0) % Plt Count (130-450) 10^3/uL MPV (7.9-10.8) fL Neut # (Auto) (1.5-6.6) 10^3/uL Lymph # (Auto) (1.5-3.5) 10^3/uL [place] # (Auto) (0.0-1.0) 10^3/uL Eos # (Auto) (0.0-0.7) 10^3/uL Baso # (Auto) (0.0-0.1) 10^3/uL Absolute Nucleated RBC x10^3/uL Nucleated RBC % /100WBC Sodium 139 (135-145) mmol/L Potassium 3.6 (3.5-5.0) mmol/L Chloride 102 (101-111) mmol/L Carbon Dioxide 28 (21-32) mmol/L Anion Gap 9.0 (6-13) BUN 10 (6-20) mg/dL Creatinine 0.7 (0.4-1.0) mg/dL Estimated GFR (MDRD) 85 L (>89) Glucose 132 H (70-100) mg/dL Calcium 9.0 (8.5-10.3) mg/dL Magnesium 2.0 (1.7-2.8) mg/dL Total Bilirubin 0.6 (0.2-1.0) mg/dL AST 25 (10-42) IU/L ALT 19 (10-60) IU/L Alkaline Phosphatase 58 (42-121) IU/L B-Natriuretic Peptide 174 H (5-100) pg/mL Total Protein 7.1 (6.7-8.2) g/dL Albumin 4.0 (3.2-5.5) g/dL Globulin 3.1 (2.1-4.2) g/dL Albumin/Globulin Ratio 1.3 (1.0-2.2) Lipase 23 (22-51) U/L Nasal Adenovirus (PCR) NOT DETECTED Nasal B. parapertussis DNA (PCR) NOT DETECTED Nasal Coronavir 229E PCR NOT DETECTED Nasal Coronavir HKU1 PCR NOT DETECTED Nasal Coronavir NL63 PCR NOT DETECTED Nasal Coronavir OC43 PCR NOT DETECTED Nasal Enterovir/Rhinovir PCR NOT DETECTED Nasal Influenza A H3 PCR DETECTED A Nasal Influenza B PCR NOT DETECTED Nasal Parainfluen 1 PCR NOT DETECTED Nasal Parainfluen 2 PCR NOT DETECTED Nasal Parainfluen 3 PCR NOT DETECTED Nasal Parainfluen 4 PCR NOT DETECTED Nasal RSV (PCR) NOT DETECTED Nasal B.pertussis DNA PCR NOT DETECTED Nasal C.pneumoniae (PCR) NOT DETECTED Raul Human Metapneumo PCR NOT DETECTED Nasal M.pneumoniae (PCR) NOT DETECTED Nasal SARS-CoV-2 (PCR) NOT DETECTED 05/25/22 Range/Units 15:08 WBC 4.7 L (4.8-10.8) x10^3/uL RBC 4.31 (4.20-5.40) 10^6/uL Hgb 13.5 (12.0-16.0) g/dL Hct 41.9 (37.0-47.0) % MCV 97.2 (81.0-99.0) fL MCH 31.3 H (27.0-31.0) pg MCHC 32.2 (32.0-36.0) g/dL RDW 13.9 (12.0-15.0) % Plt Count 274 (130-450) 10^3/uL MPV 9.2 (7.9-10.8) fL Neut # (Auto) 4.3 (1.5-6.6) 10^3/uL Lymph # (Auto) 0.1 L (1.5-3.5) 10^3/uL [place] # (Auto) 0.2 (0.0-1.0) 10^3/uL Eos # (Auto) 0.0 (0.0-0.7) 10^3/uL Baso # (Auto) 0.0 (0.0-0.1) 10^3/uL Absolute Nucleated RBC 0.00 x10^3/uL Nucleated RBC % 0.0 /100WBC Sodium (135-145) mmol/L Potassium (3.5-5.0) mmol/L Chloride (101-111) mmol/L Carbon Dioxide (21-32) mmol/L Anion Gap (6-13) BUN (6-20) mg/dL Creatinine (0.4-1.0) mg/dL Estimated GFR (MDRD) (>89) Glucose (70-100) mg/dL Calcium (8.5-10.3) mg/dL Magnesium (1.7-2.8) mg/dL Total Bilirubin (0.2-1.0) mg/dL AST (10-42) IU/L ALT (10-60) IU/L Alkaline Phosphatase (42-121) IU/L B-Natriuretic Peptide (5-100) pg/mL Total Protein (6.7-8.2) g/dL Albumin (3.2-5.5) g/dL Globulin (2.1-4.2) g/dL Albumin/Globulin Ratio (1.0-2.2) Lipase (22-51) U/L Nasal Adenovirus (PCR) Nasal B. parapertussis DNA (PCR) Nasal Coronavir 229E PCR Nasal Coronavir HKU1 PCR Nasal Coronavir NL63 PCR Nasal Coronavir OC43 PCR Nasal Enterovir/Rhinovir PCR Nasal Influenza A H3 PCR Nasal Influenza B PCR Nasal Parainfluen 1 PCR Nasal Parainfluen 2 PCR Nasal Parainfluen 3 PCR Nasal Parainfluen 4 PCR Nasal RSV (PCR) Nasal B.pertussis DNA PCR Nasal C.pneumoniae (PCR) Raul Human Metapneumo PCR Nasal M.pneumoniae (PCR) Nasal SARS-CoV-2 (PCR) ABX Reporting Has patient been on IV antibiotics over the past 48 hours?: No Assessment/Plan - Problem List (1) Status asthmaticus, non-allergic Impression: She presented with symptoms of viral illness, myalgias, arthralgias, fever. Her viral panel was positive for influenza A. She is hypoxic due to asthma exacerba tion from her viral illness. She is smoking, 4-5 cigarettes per day. I strongly encouraged her to stop smoking. Plan - solumedrol 40mg IVP x 3 doses total. She will get her last dose today - budesonide and perforomist via inhalation - duoneb QID - albuterol as needed (2) Hypoxia Impression: Associated with her acute asthma exacerbtion. She is still wheezing, and short of breath with exertion, 93% on 2L. continue oxygen supplement. (3) Influenza A Impression: Her viral panel was positive for influenza A. She is a candidate for Tamiflu, she got her first dose on 05/25 at 22:13. plan - continue Tamiflu 75mg PO BID until 05/30/22 - IV fluids, rest, tylenol prn (4) Hypertension Impression: Continuing norvasc on her home dose. Qualifiers: Hypertension type: primary hypertension Qualified Code(s): I10 - Essential (primary) hypertension (5) Pelvic pain in female Impression: Recurrent pelvic pain she has had with adhesions due to a hysterectomy. She feels like the symptoms are early and might go away. If she needs a follow up she should see her [facility] certified concierge. (6) Hot flashes related to aromatase inhibitor therapy Impression: She could not tolerate the anastrozole it was so severe. Continue venlafaxine and make sure she takes calcium 500mg po TID and 800IU of vitamin D every day.
[2022-05-26] MEDS: SODIUM CHLORIDE FLUSH 0.9% 10 ML SYRINGE IVP PRN (14:01)
[2022-05-27] MEDS: SODIUM CHLORIDE FLUSH 0.9% 10 ML SYRINGE IVP SCH ×3 (00:13→16:00)
[2022-05-27] MEDS: ZOLPIDEM 5 MG TABLET PO PRN ×2 (00:16→22:16)
[2022-05-27] MEDS: BUDESONIDE 0.5 MG/2 ML NEB INH SCH ×2 (05:35→20:45)
[2022-05-27] MEDS: IPRATROPIUM/ALBUTEROL 3 ML NEB INH SCH ×4 (05:35→20:45)
[2022-05-27] MEDS: oxyCODONE 5 MG TABLET PO PRN ×2 (08:06→16:10)
[2022-05-27] MEDS: amLODIPine 5 MG TABLET PO SCH (08:06)
[2022-05-27] MEDS: OSELTAMIVIR 75 MG CAPSULE PO SCH ×2 (08:07→21:01)
[2022-05-27] MEDS: VENLAFAXINE 37.5 MG TABLET PO SCH ×2 (08:07→21:01)
[2022-05-27] MEDS: CETIRIZINE 10 MG TABLET PO SCH (10:35)
[2022-05-27 11:26] LABS: BASOPHILS % (AUTO) 0.1 %; HCT - HEMATOCRIT 43.9 % (37.0-47.0); LYMPHOCYTES # (AUTO) 0.7 10^3/uL (1.5-3.5); LYMPHOCYTES % (AUTO) 8.6 %; MEAN CORPUSCULAR HEMOGLOBIN 31.7 pg (27.0-31.0); MEAN CORPUSCULAR HGB CONC 31.9 g/dL (32.0-36.0); MEAN CORPUSCULAR VOLUME 99.3 fL (81.0-99.0); MEAN PLATELET VOLUME 9.3 fL (7.9-10.8); MONOCYTES # (AUTO) 0.6 10^3/uL (0.0-1.0); MONOCYTES % (AUTO) 7.2 %; NEUTROPHILS % (AUTO) 83.9 %; PLT - PLATELET COUNT 321 10^3/uL (130-450); RED BLOOD COUNT 4.42 10^6/uL (4.20-5.40); RED CELL DISTRIBUTION WIDTH 13.5 % (12.0-15.0); WHITE BLOOD COUNT 8.4 x10^3/uL (4.8-10.8)
[2022-05-27 11:43] LABS: CALCIUM 8.9 mg/dL (8.5-10.3); CREATININE 0.6 mg/dL (0.4-1.0)
--- NOTE | 2022-05-27 12:45 | PROVIDER PROGRESS NOTE ---
Assessment/Plan - Problem List (1) Acute respiratory failure with hypoxia Assessment/Plan: Her RN documented that on 1 L O2 via nasal cannula, with walking to the bathroom, the patient's oxygen saturation dropped to 80% (RN put this in Notification to provider Notes) This is associated with her acute asthma exacerbtion. She is still wheezing, and short of breath with exertion Plan: Will admit to Inpt status Continue oxygen supplemental and treating the underlying cause. On the day of discharge, we will order an oximetry walk test to see if she needs an order for home oxygen. She says she would agree to use home oxygen. (2) Status asthmaticus, non-allergic Impression: She presented with symptoms of viral illness, myalgias, arthralgias, fever. Her viral panel was positive for influenza A. She is hypoxic due to asthma exacerbation from her viral illness. She was also smoking, 4-5 cigarettes per day. We have strongly encouraged her to stop smoking. Plan: - solumedrol 40mg IVP x 3 doses were given then stopped, assuming she would improve. We will continue solumedrol - budesonide and perforomist via nebulized inhalation - duoneb QID - albuterol as needed - will restart her home Montelukast - will add Mucinex for better expectoration (3) Influenza A Impression: Her viral panel was positive for influenza A. She is a candidate for Tamiflu, she got her first dose on 05/25 at 22:13. Plan: - continue Tamiflu 75mg PO BID until 05/30/22 - IV fluids, rest, tylenol prn (4) Chest pain Impression: The patient told her nurse this morning she had chest pain. When I questioned her about it she describes tightness around her entire rib cage. An EKG was done to assure there were no acute changes and there were: her lateral T waves are biphasic, which is new since 05/29/2019. Therefore, an hs- troponin was ordered and was normal at 5.0. My impression is that this was chest "tightness" from her asthma, and not angina. Plan: treat as in #2 and #3 I will pass along the information about the abnormal EKG to her PCP at the time of discharge, and she should undergo an outpatient stress test, given the new EKG changes compared to 3 years ago (5) Hypertension Impression: Plan: Continuing norvasc on her home dose. Qualifiers: Hypertension type: primary hypertension Qualified Code(s): I10 - Essential (primary) hypertension (6) Pelvic pain in female Impression: Recurrent pelvic pain she has had with adhesions due to a hysterectomy. She feels like the symptoms are early and might go away. Plan: If she needs a follow up she should see her radio adjuster. (7) Hot flashes related to aromatase inhibitor therapy Impression: She could not tolerate the anastrozole it was so severe. Plan: Continue venlafaxine and make sure she takes calcium 500mg po TID and 800IU of vitamin D every day. - Current Meds Current Meds: Current Medications Generic Name Dose Route Start Last Admin Trade Name Freq PRN Reason Stop Dose Admin Albuterol 2.5 mg 05/25/22 17:08 05/26/22 06:16 Albuterol Neb 2.5 Mg/3 Ml INH 2.5 mg Q2HR PRN Administration Wheezing Albuterol/Ipratropium 3 ml 05/26/22 15:00 05/27/22 10:56 Ipratropium/Albuterol 3 Ml Neb INH 3 ml RTQID SHILPA Administration Amlodipine Besylate 5 mg 05/26/22 09:00 05/27/22 08:06 Amlodipine 5 Mg Tablet PO 5 mg DAILY SHILPA Administration Budesonide 0.5 mg 05/25/22 19:00 05/27/22 05:35 Budesonide 0.5 Mg/2 Ml Neb INH 0.5 mg RTBID SHILPA Administration Cetirizine HCl 10 mg 05/27/22 10:00 05/27/22 10:35 Cetirizine 10 Mg Tablet PO 10 mg DAILY SHILPA Administration Oseltamivir Phosphate 75 mg 05/25/22 21:00 05/27/22 08:07 Oseltamivir 75 Mg Capsule PO 05/30/22 09:01 75 mg BID SHILPA Administration Oxycodone HCl 5 mg 05/25/22 17:05 05/27/22 08:06 Oxycodone 5 Mg Tablet PO 5 mg Q4HR PRN Administration Pain 5 to 7 Sodium Chloride 10 ml 05/25/22 17:05 05/26/22 14:01 Sodium Chloride Flush 0.9% 10 Ml Syringe IVP 20 ml PRN PRN Administration NEEDED PER PROVIDER ORDERS Sodium Chloride 10 ml 05/26/22 01:00 05/27/22 08:08 Sodium Chloride Flush 0.9% 10 Ml Syringe IVP 10 ml 0100,0900,1700 SHILPA Administration Venlafaxine HCl 37.5 mg 05/25/22 21:00 05/27/22 08:07 Venlafaxine 37.5 Mg Tablet PO 05/27/22 21:59 37.5 mg BID SHILPA Administration Zolpidem Tartrate 5 mg 05/25/22 17:10 05/27/22 00:16 Zolpidem 5 Mg Tablet PO 5 mg QPM PRN Administration Insomnia - Lab Result Fish Bone Diagrams: 05/27/22 11:23 05/27/22 11:23 - EKG Results EKG Interpreted Independently: Yes EKG Comparison: Changed from prior EKG EKG Findings: Sinus rhythm, rate 79, borderline right axis deviation, biphasic/flat T waves in the lateral leads, possible LA and RA enlargement. Since EKG from 05/29/2019, lateral T wave abnormality is new. - Additional Planning My Orders: My Active Orders 05/27/22 10:00 Cetirizine [ZyrTEC] 10 mg PO DAILY 05/27/22 12:40 Admit \\ Transfer \\ Status [RC] .ONCE 05/27/22 14:00 TROPONIN I HIGH SENSITIVITY [IAI] Timed 05/27/22 21:00 Montelukast [Singulair] 10 mg PO QPM 05/28/22 09:00 Venlafaxine ER [Effexor ER] 75 mg PO DAILY Subjective - Subjective Patient Reports: Chest Pain (Reports "tightness" around her entire rib cage. Not pleuritic, like when she coughs.), Shortness of Breath (She reports her cough is loosening up. She is still very tachypneic when she walks to the bathroom and can hear herself wheezing) Objective Vital Signs: Vital Signs - 24 hr 05/26/22 05/26/22 05/26/22 15:22 16:00 18:27 Temperature 36.8 C Heart Rate 92 88 Heart Rate [ 90 Brachial] Respiratory 20 18 20 Rate Blood Pressure 124/77 [Right Radial artery] O2 Saturation 94 If not protocol 2 2 : Oxygen Flow, liters/minute 05/26/22 05/27/22 05/27/22 19:52 00:00 05:23 Temperature 37.0 C 36.5 C 36.5 C Heart Rate Heart Rate [ 91 97 97 Brachial] Respiratory 20 16 22 Rate Blood Pressure 129/70 143/85 H 117/104 H [Right Radial artery] O2 Saturation 95 96 96 If not protocol 2 2 2 : Oxygen Flow, liters/minute 05/27/22 05/27/22 05/27/22 05:35 06:20 08:01 Temperature 36.6 C Heart Rate 92 Heart Rate [ 76 Brachial] Respiratory 20 20 Rate Blood Pressure 129/78 135/91 H [Right Radial artery] O2 Saturation 96 If not protocol 2 2 : Oxygen Flow, liters/minute 05/27/22 05/27/22 05/27/22 08:45 10:58 11:47 Temperature 36.4 C L Heart Rate 88 Heart Rate [ 83 Brachial] Respiratory 18 Rate Blood Pressure 140/82 H [Right Radial artery] O2 Saturation 95 93 If not protocol 1 1 1 : Oxygen Flow, liters/minute Oxygen O2 Source Nasal cannula Oxygen Flow Rate 2 I&O (Last 24 Hrs): Intake and Output Totals x24h 05/25/22 05/26/22 05/27/22 23:59 23:59 23:59 Intake Total 350 1420 850 Balance 350 1420 850 General: Alert, Oriented x3 HEENT: Mucous membr. moist/pink, Other (Wearing O2 per n.c.) Neck: Supple, No JVD Neuro: Alert, Non Focal Cardiovascular: Regular rate, No murmurs Respiratory: Wheezes (In all 4 quadrants posteriorly), Rhonchi (R basee) Abdomen: Normal bowel sounds, Soft Extremities: No clubbing, No edema - Results Results: Laboratory Results WBC 8.4 x10^3/uL (4.8-10.8) 05/27/22 11:23 RBC 4.42 10^6/uL (4.20-5.40) 05/27/22 11:23 Hgb 14.0 g/dL (12.0-16.0) 05/27/22 11:23 Hct 43.9 % (37.0-47.0) 05/27/22 11:23 MCV 99.3 fL (81.0-99.0) H 05/27/22 11:23 MCH 31.7 pg (27.0-31.0) H 05/27/22 11:23 MCHC 31.9 g/dL (32.0-36.0) L 05/27/22 11:23 RDW 13.5 % (12.0-15.0) 05/27/22 11:23 Plt Count 321 10^3/uL (130-450) 05/27/22 11:23 MPV 9.3 fL (7.9-10.8) 05/27/22 11:23 Neut # (Auto) 7.0 10^3/uL (1.5-6.6) H 05/27/22 11:23 Lymph # (Auto) 0.7 10^3/uL (1.5-3.5) L 05/27/22 11:23 [place] # (Auto) 0.6 10^3/uL (0.0-1.0) 05/27/22 11:23 Eos # (Auto) 0.0 10^3/uL (0.0-0.7) 05/27/22 11:23 Baso # (Auto) 0.0 10^3/uL (0.0-0.1) 05/27/22 11:23 Absolute Nucleated RBC 0.00 x10^3/uL 05/27/22 11:23 Nucleated RBC % 0.0 /100WBC 05/27/22 11:23 Sodium 136 mmol/L (135-145) 05/27/22 11:23 Potassium 4.0 mmol/L (3.5-5.0) 05/27/22 11:23 Chloride 98 mmol/L (101-111) L 05/27/22 11:23 Carbon Dioxide 28 mmol/L (21-32) 05/27/22 11:23 Anion Gap 10.0 (6-13) 05/27/22 11:23 BUN 19 mg/dL (6-20) 05/27/22 11:23 Creatinine 0.6 mg/dL (0.4-1.0) 05/27/22 11:23 Estimated GFR (MDRD) 101 (>89) 05/27/22 11:23 Glucose 89 mg/dL (70-100) 05/27/22 11:23 Calcium 8.9 mg/dL (8.5-10.3) 05/27/22 11:23 Magnesium 2.0 mg/dL (1.7-2.8) 05/25/22 15:08 Total Bilirubin 0.6 mg/dL (0.2-1.0) 05/25/22 15:08 AST 25 IU/L (10-42) 05/25/22 15:08 ALT 19 IU/L (10-60) 05/25/22 15:08 Alkaline Phosphatase 58 IU/L (42-121) 05/25/22 15:08 Troponin I High Sens 5.0 ng/L (2.3-14.8) 05/27/22 11:23 B-Natriuretic Peptide 160 pg/mL (5-100) H 05/27/22 11:23 Total Protein 7.1 g/dL (6.7-8.2) 05/25/22 15:08 Albumin 4.0 g/dL (3.2-5.5) 05/25/22 15:08 Globulin 3.1 g/dL (2.1-4.2) 05/25/22 15:08 Albumin/Globulin Ratio 1.3 (1.0-2.2) 05/25/22 15:08 Lipase 23 U/L (22-51) 05/25/22 15:08 Nasal Adenovirus (PCR) NOT DETECTED 05/25/22 15:12 Nasal B. parapertussis DNA (PCR) NOT DETECTED 05/25/22 15:12 Nasal Coronavir 229E PCR NOT DETECTED 05/25/22 15:12 Nasal Coronavir HKU1 PCR NOT DETECTED 05/25/22 15:12 Nasal Coronavir NL63 PCR NOT DETECTED 05/25/22 15:12 Nasal Coronavir OC43 PCR NOT DETECTED 05/25/22 15:12 Nasal Enterovir/Rhinovir PCR NOT DETECTED 05/25/22 15:12 Nasal Influenza A H3 PCR DETECTED A 05/25/22 15:12 Nasal Influenza B PCR NOT DETECTED 05/25/22 15:12 Nasal Parainfluen 1 PCR NOT DETECTED 05/25/22 15:12 Nasal Parainfluen 2 PCR NOT DETECTED 05/25/22 15:12 Nasal Parainfluen 3 PCR NOT DETECTED 05/25/22 15:12 Nasal Parainfluen 4 PCR NOT DETECTED 05/25/22 15:12 Nasal RSV (PCR) NOT DETECTED 05/25/22 15:12 Nasal B.pertussis DNA PCR NOT DETECTED 05/25/22 15:12 Nasal C.pneumoniae (PCR) NOT DETECTED 05/25/22 15:12 Raul Human Metapneumo PCR NOT DETECTED 05/25/22 15:12 Nasal M.pneumoniae (PCR) NOT DETECTED 05/25/22 15:12 Nasal SARS-CoV-2 (PCR) NOT DETECTED 05/25/22 15:12 - Procedures Procedures: Procedures (03/03/18) RELEASE PERITONEUM, PERCUTANEOUS ENDOSCOPIC APPROACH (01/21/17) RESECTION OF BI FALLOPIAN TUBE, VIA OPENING W PER[facility] ENDO (05/14/16) RESECTION OF BILATERAL OVARIES, VIA OPENING W [facility] ENDO (05/14/16) RESECTION OF CERVIX, VIA NATURAL OR ARTIFICIAL OPENING (05/14/16) RESECTION OF UTERUS, VIA OPENING W [facility] ENDO (05/14/16)
[2022-05-27] MEDS: PANTOPRAZOLE 40 MG TABLET PO SCH (14:11)
[2022-05-27] MEDS: methylPREDNISolone SUCCINATE 40 MG/ML VIAL IVP SCH ×2 (16:00→22:16)
[2022-05-27] MEDS ORDERED: MONTELUKAST 10 MG TABLET PO SCH (21:00)
[2022-05-27] MEDS: guaiFENesin 600 MG TABLET PO SCH (21:01)
[2022-05-28] MEDS: SODIUM CHLORIDE FLUSH 0.9% 10 ML SYRINGE IVP SCH ×2 (04:54→08:21)
[2022-05-28] MEDS: methylPREDNISolone SUCCINATE 40 MG/ML VIAL IVP SCH (05:48)
--- NOTE | 2022-05-28 08:09 | Discharge Plan ---
Discharge Plan Problem Reviewed?: Yes Disposition: Home, Self Care Condition: Stable Prescriptions: oxyCODONE [Roxicodone] 5 mg PO Q4HR PRN #5 tab PRN Reason: Severe Pain predniSONE [Deltasone] 10 mg PO 0800 #10 tablet Ipratropium/Albuterol [Duoneb] 3 ml INH QID #12 ea Fluticasone Propion/Salmeterol [Fluticasone-Salmeterol 500-50] 1 puffs INH BID #1 each guaiFENesin [Mucinex] 600 mg PO BID #14 tab Nicotine 14 mg Patch [Nicoderm] 1 each TOP Q24H #7 patch Budesonide [Pulmicort] 0.5 mg INH RTBID #1 ea Oseltamivir [Tamiflu] 75 mg PO BID #10 cap Albuterol Sulf [Ventolin Hfa Inhaler] 1 - 2 puffs INH Q4H PRN #1 each PRN Reason: Shortness Of Air/Wheezing Diet: Regular Activity Restrictions: No Restrictions Shower Restrictions: No Driving Restrictions: No Instruction Topics: Oseltamivir capsules Health Concerns: You were hospitalized because you had a severe asthma attack that was caused by catching the flu. You needed steroids and nebulized inhalers to open your airways. You were started on Tamiflu to shorten the course of this infection and symptoms. You are being sent home to take a short course of oral steroids with a rapid taper down, Mucinex to help clear to phlegm, and several more tablets of Tamiflu and you may resume all your other usual pre-hospital medications, nebulized medicines and inhalers. Some of these were refilled, as you requested. Also Nicotine patch and oxycodone tablets were prescribed. Stay well-hydrated. Do Not over exert yourself in this next week, while you are still recovering from the Flu. You were tested to see if you need a new home order for oxygen and you do. The settings should be at 2L/min, to use when you are active. Plan of Treatment: As above. PLEASE STOP SMOKING. You should see your Primary Care Provider in the next 1 to 2 weeks for hospital follow-up office visit. Care Goals: Improvement in symptoms and stabilization are the goals. Assessment: Patient understands and is agreeable with the plan. Additional Instructions or Follow Up instructions: If you have new or worsening symptoms, call your PCP for advice or come to the ER. No Smoking: If you smoke, Please STOP! Call for help. Follow-up with: Penelope Lugo ARNP [Primary Care Provider] -
[2022-05-28] MEDS: amLODIPine 5 MG TABLET PO SCH (08:20)
[2022-05-28] MEDS: OSELTAMIVIR 75 MG CAPSULE PO SCH (08:20)
[2022-05-28] MEDS: oxyCODONE 5 MG TABLET PO PRN (08:20)
[2022-05-28] MEDS: guaiFENesin 600 MG TABLET PO SCH (08:20)
[2022-05-28] MEDS: PANTOPRAZOLE 40 MG TABLET PO SCH (08:20)
[2022-05-28] MEDS: CETIRIZINE 10 MG TABLET PO SCH (08:21)
[2022-05-28] MEDS: IPRATROPIUM/ALBUTEROL 3 ML NEB INH SCH (08:52)
[2022-05-28] MEDS: BUDESONIDE 0.5 MG/2 ML NEB INH SCH (08:52)
[2022-05-28] MEDS ORDERED: VENLAFAXINE ER 75 MG CAPSULE PO SCH (09:00)
--- NOTE | 2022-05-28 09:21 | DISCHARGE SUMMARY ---
Discharge Summary Admit Date: 05/25/22 Discharge Date: 05/28/22 Discharging Provider: Dr Loree Gavin Primary Care Provider: KATHIE Lugo Code Status: Attempt Resuscitation Condition at Discharge: Stable Discharge Disposition: 01 Home, Self Care - HPI History of Present Illness: From the H&P of Dr Joy Elizabeth: This is a 62 y/o WF who has had asthma probably since about the age of 19. She does use inhalers, including inhaled steroids, and occasional oral steroids. But she has never been intubated for it. 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 She does admit that sometimes, especially the summer, she can see the dust from the farm yard when she is working outside, and she does not think her asthma is worse when exposed to this dust. She went to [place] for weekend. She was with her children and grandchildren. On the way back from [place], yesterday, she started feeling aching with chills in the car. Last night she started having coughing and wheezing and last night was very difficult for her because she could not breathe. Even after taking her metered-dose inhalers at home she was still short of breath today and came to the emergency room. She denies phlegm production. But she is coughing, short of breath, wheezing. No change in bowel or bladder habits. However she is starting to get bowel cramping again. She had a vaginal hysterectomy and oophorectomy with cystoscopy in 2015. Within 6 months she developed severe adhesions with severe pelvic pain and bowel cramping. She underwent a lysis of adhesions in December 2016 and then a second lysis of adhesions in 2017. In the last few months she has been taking care of her grandson and she feels like her lower abdominal cramping is returning. She denies headache, syncope, seizures. She thinks she has the flu. When she presented to the emergency room her blood pressure was 151/85. Respirations 24. She was saturating 85% on room air. Temperature was 37 degrees C. She has wheezing, no use of accessory muscles. Chest x-ray is without infiltrate. In spite of 2 nebulizer treatments and steroids given in the emergency room, she is still saturating 87% on room air, and requiring 2 L nasal cannula to reach an O2 sat at 97% or 95%. Viral panel came back positive for influenza A. Tamiflu 75 mg p.o. twice daily for 10 doses, was started. She is being placed in Observation, but may need to be an Inpatient for treating this asthma attack and acute respiratory failure with hypoxia due to Influenza A. - HOSPITAL COURSE Hospital Course: (1) Acute respiratory failure with hypoxia On 1 L O2 via nasal cannula, with walking to the bathroom, the patient's oxygen saturation dropped to 80%. This was associated with her acute asthma exacerbtion with wheezing, and short of breath with exertion. We continued O2 and weaned it down slowly. W ordered an oximetry walk test, since she said she would agree to use home oxygen. On the day of discharge, the patient was not hypoxic at rest with O2 sat of 92%. With exertion on room air, her O2 saturation dropped to 88%. On 2 L/min of oxygen with exertion, her O2 sat was 95%. I am ordering home O2, okay to be on room air at rest, but she should be on 2 L/min with exertion, to treat her underlying asthma. [On the very next day, the oxygen company informed our respiratory therapist Delroy, that the patient declined O2 set up, and stated she feels fine.] (2) Status asthmaticus, non-allergic She presented with symptoms of viral illness; myalgias, arthralgias, fever. Her viral panel was positive for influenza A. She was hypoxic due to asthma exacerbation from her viral illness. She was also smoking, 4-5 cigarettes per day. We strongly encouraged her to stop smoking. She was put on Solumedrol, Budesonide and Perforomist via nebulized inhalation, Duoneb QID, Albuterol as needed, we restarted her home Montelukast and added Mucinex for better expectoration. (3) Influenza A Her viral panel was positive for influenza A. She was given Tamiflu 75mg PO BID, and was discharged on this, to continue until 05/30/22 (4) Chest pain The patient described chest pain, which she describes as "tightness around her entire rib cage". No pleuritic component. An EKG was done to assure there were no acute changes and there were: her lateral T waves were biphasic, which is new since 05/29/2019. Therefore, an hs-troponin was ordered and was normal. However, she should undergo an outpatient stress test, given the new EKG changes compared to 3 years ago. (5) Hypertension We continued her home dose of Norvasc. (6) Pelvic pain in female She has had recurrent pelvic pain from adhesions due to a hysterectomy. She felt like the symptoms were early and they resolved. If she needs a follow up, she should see her Customer Service Analyst. (7) Hot flashes related to aromatase inhibitor therapy She could not tolerate the anastrozole, her side effect was so severe. Continue venlafaxine and make sure she takes calcium 500mg po TID and 800IU of vitamin D every day. - ALLERGIES Allergies/Adverse Reactions: Allergies Allergy/AdvReac Type Severity Reaction Status Date / Time silver Allergy Rash Verified 05/25/22 14:29 [From [employer] Mesh] - MEDICATIONS Home Medications: Ambulatory Orders Medication Instructions Recorded Confirmed Zolpidem [Ambien] 5 mg PO QPM PRN 05/12/16 05/26/22 amLODIPine [Norvasc] 5 mg PO DAILY 05/29/19 05/26/22 Cetirizine [ZyrTEC] 10 mg PO DAILY 05/26/22 05/26/22 Montelukast [Singulair] 10 mg PO QPM 05/26/22 05/26/22 Venlafaxine ER [Effexor ER] 75 mg PO DAILY 05/26/22 05/26/22 Albuterol Sulf [Ventolin Hfa 1 - 2 puffs INH Q4H PRN #1 each 05/28/22 Inhaler] Budesonide [Pulmicort] 0.5 mg INH RTBID #1 ea 05/28/22 Fluticasone Propion/Salmeterol 1 puffs INH BID #1 each 05/28/22 [Fluticasone-Salmeterol 500-50] Ipratropium/Albuterol [Duoneb] 3 ml INH QID #12 ea 05/28/22 Nicotine 14 mg Patch [Nicoderm] 1 each TOP Q24H #7 patch 05/28/22 Oseltamivir [Tamiflu] 75 mg PO BID #10 cap 05/28/22 guaiFENesin [Mucinex] 600 mg PO BID #14 tab 05/28/22 oxyCODONE [Roxicodone] 5 mg PO Q4HR PRN #5 tab 05/28/22 predniSONE [Deltasone] 10 mg PO 0800 #10 tablet 05/28/22 - PHYSICAL EXAM AT DISCHARGE General Appearance: positive: No acute distress, Alert Eyes Bilateral: positive: Normal inspection, EOMI ENT: positive: ENT inspection nml, No signs of dehydration Neck: positive: Nml inspection, No JVD Respiratory: positive: Breath sounds nml (Diminished breath sounds in all lung hutton) Cardiovascular: positive: Regular rate & rhythm, No murmur Abdomen: positive: Non-tender, No distention Skin: positive: Warm, Dry Extremities: positive: Non-tender, No pedal edema Neurologic/Psychiatric: positive: Oriented x3, Motor nml - LABS Result Diagrams: 05/27/22 11:23 05/27/22 11:23 - FOLLOW UP Follow Up: See PCP in 1-2 weeks for a hospital follow-up appointment. - TIME SPENT Time Spent in Discharge (Minutes): 45
[2022-05-28 11:15] VITALS: BP 152/90
== END 2022-05-28 13:15 | disposition home or self-care (01) | DRG 193 ==
LOC: ED 14:19 → MS2 17:05 → OBSVTOIN 05-27 12:40
PROVIDERS: ADMIT Specialist; ATTEND Internal Medicine
DX: J10.1 Influenza due to other identified influenza virus with other respiratory manifestations (principal); J96.01 Acute respiratory failure with hypoxia; J45.22 Mild intermittent asthma with status asthmaticus; R07.81 Pleurodynia; R94.31 Abnormal electrocardiogram [ECG] [EKG]; N73.6 Female pelvic peritoneal adhesions (postinfective); F17.210 Nicotine dependence, cigarettes, uncomplicated; R32 Unspecified urinary incontinence; F32.A Depression, unspecified; R53.1 Weakness; I10 Essential (primary) hypertension; R10.2 Pelvic and perineal pain; Z20.822 Contact with and (suspected) exposure to COVID-19; T45.1X5D Adverse effect of antineoplastic and immunosuppressive drugs, subsequent encounter; Z79.51 Long term (current) use of inhaled steroids; Z79.52 Long term (current) use of systemic steroids; Z85.3 Personal history of malignant neoplasm of breast
CPT/HCPCS: 36415; 71045; 80048; 80053; 83690; 83735; 83880; 84484; 85025; 87633; 93005; 94640; 94761; 96374; 96375; 96376; 99284; 99285; A9270; G0378; J7626

== ENCOUNTER 2022-07-21 10:58 | Outpatient (CLI) | payer MEDICAID ==
[2022-07-21 14:46] LABS: BASOPHILS % (AUTO) 0.8 %; EOSINOPHILS # (AUTO) 0.2 10^3/uL (0.0-0.7); EOSINOPHILS % (AUTO) 4.9 %; HCT - HEMATOCRIT 44.6 % (37.0-47.0); LYMPHOCYTES # (AUTO) 1.2 10^3/uL (1.5-3.5); LYMPHOCYTES % (AUTO) 30.9 %; MEAN CORPUSCULAR HEMOGLOBIN 31.1 pg (27.0-31.0); MEAN CORPUSCULAR HGB CONC 31.4 g/dL (32.0-36.0); MEAN CORPUSCULAR VOLUME 99.1 fL (81.0-99.0); MEAN PLATELET VOLUME 9.7 fL (7.9-10.8); MONOCYTES # (AUTO) 0.4 10^3/uL (0.0-1.0); MONOCYTES % (AUTO) 10.3 %; NEUTROPHILS # (AUTO) 2.1 10^3/uL (1.5-6.6); NEUTROPHILS % (AUTO) 52.8 %; PLT - PLATELET COUNT 347 10^3/uL (130-450); RED CELL DISTRIBUTION WIDTH 13.1 % (12.0-15.0); WHITE BLOOD COUNT 3.9 x10^3/uL (4.8-10.8)
[2022-07-21 15:23] LABS: ALBUMIN 3.9 g/dL (3.2-5.5); ALBUMIN/GLOBULIN RATIO 1.3 (1.0-2.2); ALKALINE PHOSPHATASE 50 IU/L (42-121); ALT ALANINE AMINOTRANSFERASE 19 IU/L (10-60); AST ASPARTATE AMINOTRANSFERASE 26 IU/L (10-42); BILIRUBIN,TOTAL 0.9 mg/dL (0.2-1.0); BUN - BLOOD UREA NITROGEN 16 mg/dL (6-20); CALCIUM 9.2 mg/dL (8.5-10.3); CARBON DIOXIDE - CO2 30 mmol/L (21-32); CHLORIDE 102 mmol/L (101-111); CHOL/HDL RATIO 3.2 (<4.4); CHOLESTEROL 284 mg/dL; CREATININE 0.6 mg/dL (0.4-1.0); GFR - MDRD 101 (>89); GLUCOSE 100 mg/dL (70-100); HDL CHOLESTEROL 89 mg/dL; LDL CHOLESTEROL,CALCULATED 175 mg/dL; POTASSIUM 4.2 mmol/L (3.5-5.0); SODIUM 140 mmol/L (135-145); TRIGLYCERIDES 99 mg/dL; VLDL CHOLESTEROL 20 mg/dL
[2022-07-21 15:25] LABS: THYROID STIMULATING HORMONE 4.8 uIU/mL (0.34-5.60)
== END 2022-07-21 10:59 | disposition home or self-care (01) ==
LOC: LAB.S 10:58
PROVIDERS: ATTEND Registered Nurse
DX: I10 Essential (primary) hypertension (principal); Z13.220 Encounter for screening for lipoid disorders; Z13.29 Encounter for screening for other suspected endocrine disorder; Z13.0 Encounter for screening for diseases of the blood and blood-forming organs and certain disorders involving the immune mechanism
CPT/HCPCS: 36415; 80053; 80061; 83721; 84443; 85025

== ENCOUNTER 2023-05-20 03:43 | Outpatient (CLI) | payer MEDICAID | END 2023-05-20 03:44 | disposition critical access hospital (66) | LOC: EMS 03:43 | DX: R06.02 Shortness of breath (principal); R06.2 Wheezing | CPT/HCPCS: A0425; A0427; A0999 ==

== ENCOUNTER 2023-05-20 04:08 | Observation (INO) | payer MEDICAID ==
[2023-05-20] MEDS ORDERED: ALBUTEROL NEB 2.5 MG/3 ML INH STA (04:33)
[2023-05-20 05:15] LABS: BASOPHILS % (AUTO) 0.3 %; EOSINOPHILS # (AUTO) 0.2 10^3/uL (0.0-0.7); EOSINOPHILS % (AUTO) 1.6 %; HCT - HEMATOCRIT 47.2 % (37.0-47.0); HGB - HEMOGLOBIN 14.9 g/dL (12.0-16.0); LYMPHOCYTES # (AUTO) 0.5 10^3/uL (1.5-3.5); LYMPHOCYTES % (AUTO) 5.3 %; MEAN CORPUSCULAR HEMOGLOBIN 31.4 pg (27.0-31.0); MEAN CORPUSCULAR HGB CONC 31.6 g/dL (32.0-36.0); MEAN CORPUSCULAR VOLUME 99.4 fL (81.0-99.0); MEAN PLATELET VOLUME 9.6 fL (7.9-10.8); MONOCYTES # (AUTO) 0.4 10^3/uL (0.0-1.0); NEUTROPHILS % (AUTO) 88.5 %; PLT - PLATELET COUNT 323 10^3/uL (130-450); RED BLOOD COUNT 4.75 10^6/uL (4.20-5.40); RED CELL DISTRIBUTION WIDTH 13.5 % (12.0-15.0); WHITE BLOOD COUNT 10.1 x10^3/uL (4.8-10.8)
--- NOTE | 2023-05-20 05:59 | ED Physician Documentation ---
<Mason Chavez - Last Filed: 05/20/23 10:55> PD HPI DYSPNEA - Stated complaint Stated Complaint: ASTHMA - Chief complaint Chief Complaint: Resp PD PAST MEDICAL HISTORY - Present Medications Home Medications: Ambulatory Orders Medication Instructions Recorded Confirmed Zolpidem [Ambien] 5 mg PO QPM PRN 05/12/16 05/20/23 amLODIPine [Norvasc] 5 mg PO 1200 05/29/19 05/20/23 Cetirizine [ZyrTEC] 10 mg PO 1200 05/26/22 05/20/23 Montelukast [Singulair] 10 mg PO 1200 05/26/22 05/20/23 Venlafaxine ER [Effexor ER] 75 mg PO 1200 05/26/22 05/20/23 Albuterol Sulf [Ventolin Hfa 1 - 2 puffs INH Q4H PRN #1 each 05/28/22 05/20/23 Inhaler] Fluticasone/Salmeterol [Advair 1 puffs INH BID 05/20/23 05/20/23 500-50 Diskus] - Allergies Allergies/Adverse Reactions: Allergies Allergy/AdvReac Type Severity Reaction Status Date / Time silver Allergy Rash Verified 05/20/23 04:34 [From [employer] Mesh] Departure - Departure Disposition: 66 [facility] DC/Xfer Clinical Impression: Acute asthma exacerbation, Hypoxia, Acute bronchitis due to Rhinovirus Condition: Stable Discharge Date/Time: 05/20/23 12:21 <Marcial Mejia - Last Filed: 05/20/23 16:34> PD HPI DYSPNEA - History obtained from History obtained from: Patient - Additional information Additional information: Patient is a 63-year-old female with a history of asthma, smokes a pack of cigarettes a week presenting for evaluation of feeling worsening shortness of air for the past 3 days. Patient states that on Thursday she loaded a [employer]Ha[employer] in [place] for the state items and drove it back on her own. Since then she has been having a cough of clear phlegm as well as feeling short of air. She has tried her home breathing treatments without improvement in her breathing yesterday became much worse. She does have a home pulse ox noted yesterday she was in the 80s and knew she should have come yesterday but waited. Tonight she went to the bathroom and had increasing shortness of air. She attempted neb treatments at home without improvement. Her roommate called EMS. She received an additional DuoNeb treatment and 125 mg of Solu-Medrol from EMS. She states she feels slightly improved. She denies chest pain. No fever. No abdominal symptoms. No leg swelling. 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 CLEANER: Breast cancer, Other : None HEENT: None Psych: Anxiety Musculoskeletal: Osteoarthritis Derm: None - Past Surgical History Past Surgical History: Yes General: Colonoscopy, Other Ortho: Rotator cuff repair /HOME RESTORATION SERVICE CLEANER: Hysterectomy, Breast implants, Other Cardiovascular: Other - Social History Does the pt smoke?: Yes Smoking Status: Current every day smoker Does the pt drink ETOH?: No Does the pt have substance abuse?: No - POLST Patient has POLST: No POLST Status: Full Code PD ED PE NORMAL - General General: Alert and oriented X 3, No acute distress, Well developed/nourished - HEENT HEENT: Atraumatic, Moist mucous membranes, Pharynx benign - Neck Neck: Supple, no meningeal sign - Cardiac Cardiac: RRR, Strong equal pulses - Respiratory Respiratory: Other (Mild tachypnea, diffuse wheezing) - Abdomen Abdomen: Soft, Non tender - Derm Derm: Warm and dry - Extremities Extremities: No edema, No calf tenderness / cord - Neuro Neuro: Normal speech Results - Vitals Vitals: Vital Signs - 24 hr 05/20/23 05/20/23 05/20/23 04:28 04:59 07:18 Temperature 35.8 C L Heart Rate 132 H 69 98 Respiratory 26 H 19 22 Rate Blood Pressure 122/84 H 125/50 L O2 Saturation 94 94 If not protocol 2 2 : Oxygen Flow, liters/minute 05/20/23 05/20/23 05/20/23 08:07 09:00 09:54 Temperature 36.2 C L 37 C Heart Rate 126 H 119 H 83 Respiratory 24 20 20 Rate Blood Pressure 115/83 H 127/85 H O2 Saturation 89 L 92 If not protocol : Oxygen Flow, liters/minute 05/20/23 10:56 Temperature Heart Rate 89 Respiratory 22 Rate Blood Pressure O2 Saturation 92 If not protocol 2 : Oxygen Flow, liters/minute Oxygen O2 Source Nasal cannula Oxygen Flow Rate 2 - Labs Labs: Laboratory Tests 05/20/23 05/20/23 05/20/23 04:53 04:53 04:53 WBC 10.1 RBC 4.75 Hgb 14.9 Hct 47.2 H MCV 99.4 H MCH 31.4 H MCHC 31.6 L RDW 13.5 Plt Count 323 MPV 9.6 Neut # (Auto) 9.0 H Lymph # (Auto) 0.5 L Garfield # (Auto) 0.4 Eos # (Auto) 0.2 Baso # (Auto) 0.0 Absolute Nucleated RBC 0.00 Nucleated RBC % 0.0 Sodium 139 Potassium 3.8 Chloride 105 Carbon Dioxide 24 Anion Gap 10.0 BUN 12 Creatinine 0.7 Estimated GFR (MDRD) 84 L Glucose 151 H Calcium 9.4 Total Bilirubin 0.4 AST 43 H ALT 39 Alkaline Phosphatase 60 B-Natriuretic Peptide Total Protein 6.7 Albumin 4.3 Globulin 2.4 Albumin/Globulin Ratio 1.8 Nasal Adenovirus (PCR) NOT DETECTED Nasal B. parapertussis DNA (PCR) NOT DETECTED Nasal Coronavir 229E PCR NOT DETECTED Nasal Coronavir HKU1 PCR NOT DETECTED Nasal Coronavir NL63 PCR NOT DETECTED Nasal Coronavir OC43 PCR NOT DETECTED Nasal Enterovir/Rhinovir PCR DETECTED A Nasal Influenza B PCR NOT DETECTED Nasal Influenza A PCR NOT DETECTED Nasal Parainfluen 1 PCR NOT DETECTED Nasal Parainfluen 2 PCR NOT DETECTED Nasal Parainfluen 3 PCR NOT DETECTED Nasal Parainfluen 4 PCR NOT DETECTED Nasal RSV (PCR) NOT DETECTED Nasal B.pertussis DNA PCR NOT DETECTED Nasal C.pneumoniae (PCR) NOT DETECTED Raul Human Metapneumo PCR NOT DETECTED Nasal M.pneumoniae (PCR) NOT DETECTED Nasal SARS-CoV-2 (PCR) NOT DETECTED 05/20/23 04:53 WBC RBC Hgb Hct MCV MCH MCHC RDW Plt Count MPV Neut # (Auto) Lymph # (Auto) Garfield # (Auto) Eos # (Auto) Baso # (Auto) Absolute Nucleated RBC Nucleated RBC % Sodium Potassium Chloride Carbon Dioxide Anion Gap BUN Creatinine Estimated GFR (MDRD) Glucose Calcium Total Bilirubin AST ALT Alkaline Phosphatase B-Natriuretic Peptide 68 Total Protein Albumin Globulin Albumin/Globulin Ratio Nasal Adenovirus (PCR) Nasal B. parapertussis DNA (PCR) Nasal Coronavir 229E PCR Nasal Coronavir HKU1 PCR Nasal Coronavir NL63 PCR Nasal Coronavir OC43 PCR Nasal Enterovir/Rhinovir PCR Nasal Influenza B PCR Nasal Influenza A PCR Nasal Parainfluen 1 PCR Nasal Parainfluen 2 PCR Nasal Parainfluen 3 PCR Nasal Parainfluen 4 PCR Nasal RSV (PCR) Nasal B.pertussis DNA PCR Nasal C.pneumoniae (PCR) Raul Human Metapneumo PCR Nasal M.pneumoniae (PCR) Nasal SARS-CoV-2 (PCR) PD Medical Decision Making - ED course Complexity details: reviewed results, re-evaluated patient, d/w patient ED course: Patient with history of asthma and current tobacco use with SOA. Noted to be wheezing and hypoxic. Used 2 of her nebs at home, given 2 more by EMS along with solumedrol and continued significant wheezing and requiring oxygen. CBC, chemistries, BNP without significant findings. No CP. Respiratory swab positive for rhinovirus. Still requiring frequent nebs and oxygen so will plan for admission. No inpatient beds available at shift change so patient signed out to Dr. Chavez at shift change with plan for admission once bed available.
[2023-05-20 06:06] LABS: ALBUMIN 4.3 g/dL (3.2-5.5); ALBUMIN/GLOBULIN RATIO 1.8 (1.0-2.2); BILIRUBIN,TOTAL 0.4 mg/dL (0.2-1.0); CALCIUM 9.4 mg/dL (8.5-10.3); CREATININE 0.7 mg/dL (0.6-1.3); POTASSIUM 3.8 mmol/L (3.5-4.5); TOTAL PROTEIN 6.7 g/dL (6.4-8.9)
[2023-05-20] MEDS ORDERED: guaiFENesin/DEXTROMETHORPHAN 10 ML UDC PO STA (06:34)
[2023-05-20] MEDS ORDERED: ACETAMINOPHEN 325 MG TABLET PO STA (06:34)
[2023-05-20 06:49] LABS: B. PARAPERTUSSIS- RESP PCR PAN NOT DETECTED; B. PERTUSSIS- RESP PCR PANEL NOT DETECTED; C. PNEUMONIAE- RESP PCR PANEL NOT DETECTED; CORONAVIRUS 229E-RESP PCR NOT DETECTED; CORONAVIRUS HKU1-RESP PCR NOT DETECTED; CORONAVIRUS NL63-RESP PCR NOT DETECTED; CORONAVIRUS OC43-RESP PCR NOT DETECTED; HUMAN METAPNEUMOVIRUS NOT DETECTED; INFLUENZA A- RESP PCR PANEL NOT DETECTED; INFLUENZA B - RESP PCR PANEL NOT DETECTED; M. PNEUMONIAE- RESP PCR PANEL NOT DETECTED; PARAINFLUENZA VIRUS 1 NOT DETECTED; PARAINFLUENZA VIRUS 2 NOT DETECTED; PARAINFLUENZA VIRUS 3 NOT DETECTED; PARAINFLUENZA VIRUS 4 NOT DETECTED; RHINOVIRUS/ENTEROVIRUS DETECTED; RSV- RESP PCR PANEL NOT DETECTED; SARS-CoV-2 -RESP PCR PANEL NOT DETECTED
[2023-05-20] MEDS ORDERED: IPRATROPIUM/ALBUTEROL 3 ML NEB INH STA (07:45)
--- NOTE | 2023-05-20 08:38 | XRAY Report ---
PROCEDURE: Chest 1 View X-Ray INDICATIONS: SOA TECHNIQUE: One view of the chest was acquired. COMPARISON: 05/25/2022 FINDINGS: Surgical changes and devices: None. Lungs and pleura: Unchanged right pleural thickening versus small effusion. No new consolidation. Mediastinum: Heart size is at the upper limit of normal. Bones and chest wall: Degenerative changes. IMPRESSION: Unchanged right pleural thickening versus trace effusion. Limited portable radiograph. No acute ramirez es. Agree with preliminary report. Reviewed by: Jakob Jacobson MD on 05/20/2023 8:37 AM PST Approved by: Jakob Jacobson MD on 05/20/2023 8:37 AM PST Station ID: [id number]
[2023-05-20] MEDS ORDERED: ALBUTEROL NEB 2.5 MG/3 ML INH SCH (11:00)
[2023-05-20] MEDS ORDERED: SODIUM CHLORIDE FLUSH 0.9% 10 ML SYRINGE IVP PRN (11:11)
[2023-05-20] MEDS ORDERED: ONDANSETRON 4 MG/2 ML VIAL IVP PRN (11:18)
[2023-05-20] MEDS ORDERED: ACETAMINOPHEN 325 MG TABLET PO PRN (11:18)
[2023-05-20] MEDS ORDERED: ONDANSETRON ODT 4 MG TABLET TL PRN (11:18)
[2023-05-20] MEDS: SODIUM CHLORIDE 0.9% 1,000 ML IV SCH ×2 (11:31→21:57)
[2023-05-20] MEDS: methylPREDNISolone SUCCINATE 40 MG/ML VIAL IVP SCH ×2 (12:08→21:57)
--- NOTE | 2023-05-20 12:54 | PHARMACY PROGRESS NOTE ---
- Best Possible Medication History Admit Date and Time: 05/20/23 1111 Processed by: Pharmacy Medication History completed: Yes Patient Interview: Completed Secondary Source(s): Insurance records As the person ultimately responsible for medication therapy, providers are able to order a medication from an existing home medication list in [facility] via the "Reconcile Routine" prior to Confirmation of that medication by computer technical support specialist. Such practice is discouraged except when the physician, in their clinical judgment, deems that a medical need exists for a medication without regard to previous use.
[2023-05-20] MEDS: oxyCODONE 5 MG TABLET PO PRN (13:42)
[2023-05-20] MEDS: IPRATROPIUM/ALBUTEROL 3 ML NEB INH SCH ×2 (15:10→18:59)
[2023-05-20] MEDS ORDERED: ZOLPIDEM 5 MG TABLET PO PRN (16:16)
--- NOTE | 2023-05-20 16:41 | HISTORY & PHYSICAL EXAMINATION ---
Chief Complaint - Chief Complaint Chief Complaint: SOB History of Present Illness - Admitted From Admitted From:: home - History Obtained From Records Reviewed: [employer] History obtained from: Patient and meditech Exam Limitations: none - History of Present Illness HPI Comment/Other: Daylin is a 63-year-old female with a history of asthma, smokes a pack of cigarettes a week presenting for evaluation of feeling worsening shortness of air for the past 3 days. She has a hx of reoccurring bronchitis during the fall season. Patient states that on Thursday she loaded a [employer]Ha[employer] in [place] for the state items and drove it back on her own. She has felt out of breath since Thursday. She used nebulizer at home and it did not relieve for SOB. She saidsshe was blacking out and hunched over while not being able to breath and called out to her roommate who called EMS. EMS gave additional DuoNeb treatment and 125 mg of Solu-Medrol . She was taken to the hospital and denies chest pain, palpations, abdominal symptoms , leg swelling, neuromuscular symptoms, GI/ symptoms She presented initially with heart rate of 132, BP 128/82, O2 sat 94-89% with 2 L nasal cannula and room air. Respirations 26. Her labs show normal electrolyte levels. slightly high glucose(151) and slightly high AST (43). Resp PCR detected + rhinovirus and enterovirus. The patient's asthma attack and SOB was treated with Albuterol/Ipratropium, formoterol Fumarate, budesonide and methylprednisolone. History - Past Medical History Cardiovascular: reports: Hypertension, Murmur, Valve disorder Respiratory: reports: Asthma, Pneumonia, Shortness of breath, Other (bronchitis ) Neuro: reports: Peripheral neuropathy Endocrine/Autoimmune: reports: None GI: reports: None, GERD (heartburn every meal. uses pepsid with every meal) HAT STEAMER: reports: Breast cancer, Other : reports: None HEENT: reports: None Psych: reports: Anxiety Musculoskeletal: reports: Osteoarthritis Derm: reports: None MRSA Hx?: No - Past Surgical History General: reports: Colonoscopy, Other (hernia surgery ) Ortho: reports: Rotator cuff repair /HAT STEAMER: reports: Hysterectomy, Breast implants, Other (Lumpectomy) Cardiovascular: reports: Other (open heart surgery in 1972) - Family & Social History Family History: Mother: Alive and Well, , Father: Alive and Well, Family History Comment/Other: Dad at age 65 of probable diffusely metastatic prostate cancer. Mom at age 84 of bladder cancer. 1 sister at 62 of uterine cancer. 1 bother of Suicide. 1 sister of Leukaemia. 3 children are healthy. 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 Lives in [facility]. Works at [employer]. Started smoking during COVID and probably does 1 pack a week. No history of alcohol abuse. No history of recreational substance abuse. Lives with a friend/roommate. 1 child in [place], 1 child in [place], 1 child Here. If there is a POA it's her sister. - Substance History Use: Uses substance without health or social issues: Tobacco (started during covid as a act of rebelion. 1 pack a week. she agrees she needs to stop), Alcohol (2-3 drinks. 3 times/week. cocktails ) Tobacco Details: Cigarettes - POLST Patient has POLST: No POLST Status: Full Code Meds/Allgy - Home Medications Home Medications: Ambulatory Orders Medication Instructions Recorded Confirmed Zolpidem [Ambien] 5 mg PO QPM PRN 05/12/16 05/20/23 amLODIPine [Norvasc] 5 mg PO 1200 05/29/19 05/20/23 Cetirizine [ZyrTEC] 10 mg PO 1200 05/26/22 05/20/23 Montelukast [Singulair] 10 mg PO 1200 05/26/22 05/20/23 Venlafaxine ER [Effexor ER] 75 mg PO 1200 05/26/22 05/20/23 Albuterol Sulf [Ventolin Hfa 1 - 2 puffs INH Q4H PRN #1 each 05/28/22 05/20/23 Inhaler] Fluticasone/Salmeterol [Advair 1 puffs INH BID 05/20/23 05/20/23 500-50 Diskus] - Allergies Allergies/Adverse Reactions: Allergies Allergy/AdvReac Type Severity Reaction Status Date / Time silver Allergy Rash Verified 05/20/23 04:34 [From [employer] Mesh] Review of Systems - Constitutional Constitutional: denies: Fever, Chills, Malaise, Poor appetite, Night sweats, Weight loss - Eyes Eyes: denies: Pain, Irritation, Blurred vision, Vision loss - Ears, Nose & Throat Ears, Nose & Throat: denies: Ear pain, Hearing loss - Cardiovascular Cariovascular: denies: Irregular heart rate, Palpitations, Chest pain, Edema, Lightheadedness, Syncope, Orthopnea - Respiratory Respiratory: reports: Cough, Wheezing, SOB at rest, SOB with exertion - Gastrointestinal Gastrointestinal: denies: Abdominal pain, Abdominal distention, Diarrhea, Nausea, Vomiting, Poor appetite - Genitourinary Genitourinary: denies: Dysuria, Frequency, Hematuria, Incontinence - Musculoskeletal Musculoskeletal: denies: Muscle pain, Back pain, Muscle aches, Stiffness, Muscle weakness, Joint pain - Integumentary Integumentary: denies: Rash, Pruritis, Dryness - Neurological Neurological: denies: General weakness, Headache, Numbness, Memory problems, Seizures, Slurred speech - Psychiatric Psychiatric: reports: Anxiety - Endocrine Endocrine: denies: Polyuria, Polydypsia, Polyphagia - Hematologic/Lymphatic Hematologic/Lymphatic: denies: Bruising - Other Findings Other Findings: hot flashes Exam - Vital Signs Vital Signs: Vital Signs x48h Temp Pulse Pulse Resp BP BP Pulse Ox 05/20/23 16:00 36.9 C 108 H 16 123/81 H 94 05/20/23 15:15 118 H 22 05/20/23 13:34 110 H 05/20/23 12:34 36.3 C L 118 H 20 128/82 H 93 05/20/23 10:56 89 22 92 05/20/23 09:54 37 C 83 20 127/85 H 92 05/20/23 09:00 36.2 C L 119 H 20 115/83 H 89 L O2 Flow Rate 05/20/23 16:00 2 05/20/23 15:15 2 05/20/23 13:34 05/20/23 12:34 2 05/20/23 10:56 2 05/20/23 09:54 05/20/23 09:00 - Physical Exam General Appearance: positive: Alert, Mild distress Eyes Bilateral: positive: Normal inspection, PERRL, EOMI, Conjunctivae nml, No scleral icterus ENT: positive: ENT inspection nml, Pharynx nml, No signs of dehydration Neck: positive: Nml inspection, Thyroid nml, No JVD, Trachea midline Respiratory: positive: Chest non-tender, Wheezes, Rales, Rhonchi Cardiovascular: positive: Regular rate & rhythm, No murmur, No gallop Peripheral Pulses: positive: 2+ Abdomen: positive: Non-tender, No organomegaly, Nml bowel sounds, No distention Skin: positive: Color nml, No rash, Warm, Dry Extremities: positive: Non-tender, Full ROM, Nml appearance, No pedal edema Neurologic/Psychiatric: positive: Oriented x3, Sensation nml, Mood/affect nml Conclusion/Plan - Problem List (1) Acute asthma exacerbation Conclusion/Plan: dx includes increase dust inhalation when moving boxes and rhinovirus infection (PCR 05/20/2023) hx of asthma since 21 years old heart rate >118> 110> 108. O2 sat 89-94%. Resp Plan: tx with inhale Albuterol/Ipratopium, Budesonide, Formoterol Fumarate tx with PO methylprednisone monitor O2 sat (2)Acute bronchitis Conclusion/Plan dx includes PCR 05/20 detects rhinovirus/enterovirus hx of bronchitis during fall season ruled out influenza Plan cough supported with Albuterol/Ipratopium Monitor O2 sat (3) hypoxia Conclusion/Plan mostly likely due to acute asthma and bronchitis O2 sat 89-94%. Resp Plan: 2L Nasal canula if O2 sat drops below 80% bronchitis and asthma management as listed above monitor O2 sat Qualifiers: Asthma severity: mild Asthma persistence: intermittent Qualified Code(s): J45.21 - Mild intermittent asthma with (acute) exacerbation - Lab Results Fish Bones: 05/20/23 04:53 05/20/23 04:53
[2023-05-20] MEDS: FORMOTEROL FUMARATE NEB 20 MCG/2 ML INH SCH (18:59)
[2023-05-20] MEDS: BUDESONIDE 0.5 MG/2 ML NEB INH SCH (18:59)
--- NOTE | 2023-05-20 21:31 | ED Physician Documentation ---
ED Addendum - Addendum Addendum: 05/20/23 21:27 The patient had improvement in breathing from time of arrival but still wheezing and had desats to 86-87% ithout oxyugen with walking to bathroom. Improved with oxygen NC. Has wheezing still and given repeat albuterol neb with scheudling of them QID pending admission. She is still ill enough and having low sats in setting of asthma and viral rhinovirus. Will need ongoing support and treatment. Talked with hospitalist.
[2023-05-20] MEDS: SODIUM CHLORIDE FLUSH 0.9% 10 ML SYRINGE IVP SCH (21:57)
[2023-05-21] MEDS: ALBUTEROL NEB 2.5 MG/3 ML INH PRN ×2 (01:12→23:38)
[2023-05-21] MEDS: SODIUM CHLORIDE FLUSH 0.9% 10 ML SYRINGE IVP SCH ×4 (01:27→23:51)
[2023-05-21] MEDS: oxyCODONE 5 MG TABLET PO PRN ×2 (05:25→12:08)
[2023-05-21] MEDS: methylPREDNISolone SUCCINATE 40 MG/ML VIAL IVP SCH (05:25)
[2023-05-21] MEDS: IPRATROPIUM/ALBUTEROL 3 ML NEB INH SCH ×4 (05:52→18:19)
[2023-05-21] MEDS: FORMOTEROL FUMARATE NEB 20 MCG/2 ML INH SCH ×2 (05:52→18:19)
[2023-05-21] MEDS: BUDESONIDE 0.5 MG/2 ML NEB INH SCH ×2 (05:52→18:20)
[2023-05-21] MEDS: SODIUM CHLORIDE 0.9% 1,000 ML IV SCH (07:38)
[2023-05-21] MEDS: NICOTINE 14 MG PATCH TOP SCH ×2 (09:48)
[2023-05-21] MEDS: ENOXAPARIN 40 MG/0.4 ML SYRINGE SUBQ SCH (09:49)
--- NOTE | 2023-05-21 11:51 | PROVIDER PROGRESS NOTE ---
Assessment/Plan - Problem List (1) Acute asthma exacerbation Qualifiers: Asthma severity: mild Asthma persistence: intermittent Qualified Code(s): J45.21 - Mild intermittent asthma with (acute) exacerbation Assessment/Plan: Resolved dx includes increase dust inhalation when moving boxes and rhinovirus infection (PCR 05/20/2023) hx of asthma since 21 years old heart rate 118-107. O2 sat 92-95% on nasal cannula, 97% on room air. Resp 16- Plan: tx with inhale Albuterol/Ipratopium, Budesonide, Formoterol Fumarate Stop IV methylprednisone and initial medrol dose pack regimen stop IV fluids monitor O2 sat (2)Acute bronchitis Conclusion/Plan dx includes PCR 05/20 detects rhinovirus/enterovirus hx of bronchitis during fall season ruled out influenza Plan cough supported with Albuterol/Ipratopium Monitor O2 sat (3) hypoxia (resolved) Conclusion/Plan mostly likely due to acute asthma and bronchitis O2 sat 92-95% on nasal cannula, 97% on room air. Resp - Plan: 2L Nasal canula if O2 sat drops below 80% bronchitis and asthma management as listed above monitor O2 sat (4) Insomnia Conclusion/Plan Prn zolpidem (5) Hot flashes Conclusion/Plan Continue home med venlafaxine (6) Tobacco addiction Conclusion/Plan SHILPA daily nicotine patch - Current Meds Current Meds: Current Medications Generic Name Dose Route Start Last Admin Trade Name Freq PRN Reason Stop Dose Admin Acetaminophen 650 mg 05/20/23 11:18 05/21/23 05:25 Acetaminophen 325 Mg Tablet PO 650 mg Q4HR PRN Administration Pain 1 to 4, or Fever Albuterol 2.5 mg 05/20/23 11:24 05/21/23 01:12 Albuterol Neb 2.5 Mg/3 Ml INH 2.5 mg RTQ4H PRN Administration Wheezing Albuterol/Ipratropium 3 ml 05/20/23 15:00 05/21/23 10:52 Ipratropium/Albuterol 3 Ml Neb INH 3 ml RTQID SHILPA Administration Budesonide 0.5 mg 05/20/23 19:00 05/21/23 05:52 Budesonide 0.5 Mg/2 Ml Neb INH 0.5 mg RTBID SHILPA Administration Enoxaparin Sodium 40 mg 05/21/23 09:00 05/21/23 09:49 Enoxaparin 40 Mg/0.4 Ml Syringe SUBQ 40 mg DAILY SHILPA Administration Formoterol Fumarate 20 mcg 05/20/23 19:00 05/21/23 05:52 Formoterol Fumarate Neb 20 Mcg/2 Ml INH 20 mcg RTBID SHILPA Administration Sodium Chloride 1,000 mls @ 100 mls/hr 05/20/23 12:00 05/21/23 07:38 Normal Saline 0.9% IV 100 mls/hr .Q10H SHILPA Administration Methylprednisolone 40 mg 05/20/23 14:00 05/21/23 05:25 Methylprednisolone Succinate 40 Mg/Ml Vial IVP 40 mg TID SHILPA Administration Nicotine 1 patch 05/20/23 09:00 05/21/23 09:48 Nicotine 14 Mg Patch TOP 1 patch DAILY SHILPA Administration Oxycodone HCl 5 mg 05/20/23 11:18 05/21/23 05:25 Oxycodone 5 Mg Tablet PO 5 mg Q4HR PRN Administration Pain 5 to 7 Sodium Chloride 10 ml 05/20/23 17:00 05/21/23 01:27 Sodium Chloride Flush 0.9% 10 Ml Syringe IVP Not Given 0100,0900,1700 SHILPA - Lab Result Fish Bone Diagrams: 05/20/23 04:53 05/20/23 04:53 - Additional Planning Time Spent: 15-30 minutes Subjective - Subjective Patient Reports: Cough (lung pain with cough. cough up clear/ yellowish phlegm), Chest Pain, Dizzines (at rest and when getting up), Fatigue (more tired than yesterday.), Headache (8/10), Heartburn, Pain, Shortness of Breath (increased when walking or breathing), Other Objective Vital Signs: Vital Signs - 24 hr 05/20/23 05/20/23 05/20/23 12:34 13:34 15:15 Temperature 36.3 C L Heart Rate 118 H Heart Rate [ Brachial] Heart Rate [ 118 H 110 H Monitoring electrodes] Respiratory 20 22 Rate Blood Pressure 128/82 H [Right Brachial artery] O2 Saturation 93 If not protocol 2 2 : Oxygen Flow, liters/minute 05/20/23 05/20/23 05/21/23 16:00 19:03 01:07 Temperature 36.9 C 36.5 C Heart Rate Heart Rate [ 109 H Brachial] Heart Rate [ 108 H Monitoring electrodes] Respiratory 16 16 Rate Blood Pressure 123/81 H 133/92 H [Right Brachial artery] O2 Saturation 94 95 If not protocol 2 2 2 : Oxygen Flow, liters/minute 05/21/23 05/21/23 05/21/23 01:15 05:07 05:55 Temperature 36.3 C L Heart Rate 107 H 104 H Heart Rate [ 111 H Brachial] Heart Rate [ Monitoring electrodes] Respiratory 20 20 22 Rate Blood Pressure 138/98 H [Right Brachial artery] O2 Saturation 93 If not protocol 2 2 2 : Oxygen Flow, liters/minute 05/21/23 05/21/23 07:48 10:58 Temperature 36.4 C L Heart Rate 110 H Heart Rate [ 105 H Brachial] Heart Rate [ Monitoring electrodes] Respiratory 18 22 Rate Blood Pressure 133/86 H [Right Brachial artery] O2 Saturation 97 If not protocol : Oxygen Flow, liters/minute Oxygen O2 Source Room air Oxygen Flow Rate 2 I&O (Last 24 Hrs): Intake and Output Totals x24h 05/19/23 05/20/23 05/21/23 23:59 23:59 23:59 Intake Total 1860 1448.333 Balance 1860 1448.333 General: Alert, Oriented x3, Cooperative, Mild distress, Other (coughing when speaking too much. no tripoding. face red) HEENT: Atraumatic, PERRLA, EOMI, Mucous membr. moist/pink, Other (no icterus) Neck: Supple Neuro: Alert, CN 2-12 Grossly Intact, Oriented Times 3 Cardiovascular: Regular rate, Normal S1, Normal S2, No murmurs, Other (decreased hear sounds) Respiratory: Wheezes, Rhonchi Abdomen: Normal bowel sounds, Soft, No tenderness, No hepatospenomegaly, No masses Extremities: No clubbing, No cyanosis, No edema, Normal pulses, No tenderness/swelling Skin: No rashes, No breakdown, No significant lesion - Results Results: Laboratory Results WBC 10.1 x10^3/uL (4.8-10.8) 05/20/23 04:53 RBC 4.75 10^6/uL (4.20-5.40) 05/20/23 04:53 Hgb 14.9 g/dL (12.0-16.0) 05/20/23 04:53 Hct 47.2 % (37.0-47.0) H 05/20/23 04:53 MCV 99.4 fL (81.0-99.0) H 05/20/23 04:53 MCH 31.4 pg (27.0-31.0) H 05/20/23 04:53 MCHC 31.6 g/dL (32.0-36.0) L 05/20/23 04:53 RDW 13.5 % (12.0-15.0) 05/20/23 04:53 Plt Count 323 10^3/uL (130-450) 05/20/23 04:53 MPV 9.6 fL (7.9-10.8) 05/20/23 04:53 Neut # (Auto) 9.0 10^3/uL (1.5-6.6) H 05/20/23 04:53 Lymph # (Auto) 0.5 10^3/uL (1.5-3.5) L 05/20/23 04:53 [place] # (Auto) 0.4 10^3/uL (0.0-1.0) 05/20/23 04:53 Eos # (Auto) 0.2 10^3/uL (0.0-0.7) 05/20/23 04:53 Baso # (Auto) 0.0 10^3/uL (0.0-0.1) 05/20/23 04:53 Absolute Nucleated RBC 0.00 x10^3/uL 05/20/23 04:53 Nucleated RBC % 0.0 /100WBC 05/20/23 04:53 Sodium 139 mmol/L (135-145) 05/20/23 04:53 Potassium 3.8 mmol/L (3.5-4.5) 05/20/23 04:53 Chloride 105 mmol/L (101-111) 05/20/23 04:53 Carbon Dioxide 24 mmol/L (21-32) 05/20/23 04:53 Anion Gap 10.0 (6-13) 05/20/23 04:53 BUN 12 mg/dL (6-20) 05/20/23 04:53 Creatinine 0.7 mg/dL (0.6-1.3) 05/20/23 04:53 Estimated GFR (MDRD) 84 (>89) L 05/20/23 04:53 Glucose 151 mg/dL (74-104) H 05/20/23 04:53 Calcium 9.4 mg/dL (8.5-10.3) 05/20/23 04:53 Total Bilirubin 0.4 mg/dL (0.2-1.0) 05/20/23 04:53 AST 43 IU/L (10-42) H 05/20/23 04:53 ALT 39 IU/L (10-60) 05/20/23 04:53 Alkaline Phosphatase 60 IU/L (42-121) 05/20/23 04:53 B-Natriuretic Peptide 68 pg/mL (5-100) 05/20/23 04:53 Total Protein 6.7 g/dL (6.4-8.9) 05/20/23 04:53 Albumin 4.3 g/dL (3.2-5.5) 05/20/23 04:53 Globulin 2.4 g/dL (2.1-4.2) 05/20/23 04:53 Albumin/Globulin Ratio 1.8 (1.0-2.2) 05/20/23 04:53 Nasal Adenovirus (PCR) NOT DETECTED 05/20/23 04:53 Nasal B. parapertussis DNA (PCR) NOT DETECTED 05/20/23 04:53 Nasal Coronavir 229E PCR NOT DETECTED 05/20/23 04:53 Nasal Coronavir HKU1 PCR NOT DETECTED 05/20/23 04:53 Nasal Coronavir NL63 PCR NOT DETECTED 05/20/23 04:53 Nasal Coronavir OC43 PCR NOT DETECTED 05/20/23 04:53 Nasal Enterovir/Rhinovir PCR DETECTED A 05/20/23 04:53 Nasal Influenza B PCR NOT DETECTED 05/20/23 04:53 Nasal Influenza A PCR NOT DETECTED 05/20/23 04:53 Nasal Parainfluen 1 PCR NOT DETECTED 05/20/23 04:53 Nasal Parainfluen 2 PCR NOT DETECTED 05/20/23 04:53 Nasal Parainfluen 3 PCR NOT DETECTED 05/20/23 04:53 Nasal Parainfluen 4 PCR NOT DETECTED 05/20/23 04:53 Nasal RSV (PCR) NOT DETECTED 05/20/23 04:53 Nasal B.pertussis DNA PCR NOT DETECTED 05/20/23 04:53 Nasal C.pneumoniae (PCR) NOT DETECTED 05/20/23 04:53 Raul Human Metapneumo PCR NOT DETECTED 05/20/23 04:53 Nasal M.pneumoniae (PCR) NOT DETECTED 05/20/23 04:53 Nasal SARS-CoV-2 (PCR) NOT DETECTED 05/20/23 04:53 - Procedures Procedures: Procedures (03/03/18) RELEASE PERITONEUM, PERCUTANEOUS ENDOSCOPIC APPROACH (01/21/17) RESECTION OF BI FALLOPIAN TUBE, VIA OPENING W [facility] ENDO (05/14/16) RESECTION OF BILATERAL OVARIES, VIA OPENING W [facility] ENDO (05/14/16) RESECTION OF CERVIX, VIA NATURAL OR ARTIFICIAL OPENING (05/14/16) RESECTION OF UTERUS, VIA OPENING W [facility] ENDO (05/14/16) ABX Reporting Has patient been on IV antibiotics over the past 48 hours?: No
[2023-05-21] MEDS: VENLAFAXINE ER 75 MG CAPSULE PO SCH (12:03)
[2023-05-21] MEDS: CETIRIZINE 10 MG TABLET PO SCH (12:03)
[2023-05-21] MEDS: MONTELUKAST 10 MG TABLET PO SCH (12:03)
[2023-05-21] MEDS: amLODIPine 5 MG TABLET PO SCH (12:04)
[2023-05-21] MEDS ORDERED: methylPREDNISolone 4 MG TABLET PO ONE ×2 (13:00→16:00)
[2023-05-21] MEDS: guaiFENesin 600 MG TABLET PO SCH (20:05)
[2023-05-22] MEDS: BUDESONIDE 0.5 MG/2 ML NEB INH SCH (07:07)
[2023-05-22] MEDS: IPRATROPIUM/ALBUTEROL 3 ML NEB INH SCH ×2 (07:07→10:46)
[2023-05-22] MEDS: FORMOTEROL FUMARATE NEB 20 MCG/2 ML INH SCH (07:11)
[2023-05-22] MEDS ORDERED: methylPREDNISolone 4 MG TABLET PO ONE (08:00)
[2023-05-22 08:27] VITALS: BP 137/96; O2SAT 92
[2023-05-22] MEDS: guaiFENesin 600 MG TABLET PO SCH (08:44)
[2023-05-22] MEDS: oxyCODONE 5 MG TABLET PO PRN (08:44)
[2023-05-22] MEDS: SODIUM CHLORIDE FLUSH 0.9% 10 ML SYRINGE IVP SCH (08:46)
[2023-05-22] MEDS: ENOXAPARIN 40 MG/0.4 ML SYRINGE SUBQ SCH (08:46)
[2023-05-22] MEDS: NICOTINE 14 MG PATCH TOP SCH (08:53)
--- NOTE | 2023-05-22 09:02 | Discharge Plan ---
Discharge Plan Problem Reviewed?: Yes Disposition: Home, Self Care Condition: Fair Prescriptions: methylPREDNISolone [Medrol Dose Pack] 1 each PO .PACKAGEINSTRUCTIONS 6 Days #1 each guaiFENesin [Mucinex] 600 mg PO BID #30 tab Diet: Regular Activity Restrictions: Activity as Tolerated Shower Restrictions: No Driving Restrictions: No Health Concerns: You have lifelong asthma and are well-controlled on long-acting bronchodilators. You rarely needed rescue inhaler. However you went to clean out an old house and packed up boxes, and became ill with rhinovirus/cold. On top of that, this time of year always gives you a little bit worse asthma. The combination of all 3 gave you a very severe asthma attack with a drop in your oxygen levels. Unfortunately he also started smoking during COV. You have responded very nicely to our inhaled long-acting bronchodilators, long-acting steroids. You are still wheezing quite a bit and are very tired but you feel like your breathing is under control and you would like to go home. You no longer need oxygen. Plan of Treatment: 1. Please see your primary care provider in the next week. Her office will be notified that you are in the hospital. 2. I am sending you home on a taper dose of steroids. It is called a Medrol Dosepak. Follow the instructions on the package. 3. Even though your package of albuterol liquid for your nebulizer is a-year-old, I think you can still keep on using it for the next few months. Care Goals: To get your asthma back under control And to stop smoking Assessment: Alert and oriented, able to follow through on plans and promises to do so No Smoking: If you smoke, Please STOP! Call for help.
--- NOTE | 2023-05-22 09:08 | DISCHARGE SUMMARY ---
"Discharge Summary Admit Date: 05/20/23 Discharge Date: 05/22/23 Discharging Provider: Joy Elizabeth MD Primary Care Provider: AGUSTÍN Womack Code Status: Attempt Resuscitation Condition at Discharge: Fair Discharge Disposition: 01 Home, Self Care - DIAGNOSES Discharge Diagnoses with Status of Each Condition: 1. acute asthma exacerbation 2. Acute bronchitis 3. Rhinovirus infection 4. Acute hypoxia resolved 5. Insomnia 6. Hot flashes 7. Tobacco abuse with nicotine withdrawal - HPI History of Present Illness: Daylin is a 63-year-old female with a history of asthma, smokes a pack of cigarettes a week presenting for evaluation of feeling worsening shortness of air for the past 3 days. She has a hx of reoccurring bronchitis during the fall season. Patient states that on Thursday she loaded a [employer] in [place] for the state items and drove it back on her own. She has felt out of breath since . She used nebulizer at home and it did not relieve for SOB. She saidsshe was blacking out and hunched over while not being able to breath and called out to her roommate who called EMS. EMS gave additional DuoNeb treatment and 125 mg of Solu-Medrol . She was taken to the hospital and denies chest pain, palpations, abdominal symptoms , leg swelling, neuromuscular symptoms, GI/ symptoms She presented initially with heart rate of 132, BP 128/82, O2 sat 94-89% with 2 L nasal cannula and room air. Respirations 26. Her labs show normal electrolyte levels. slightly high glucose(151) and slightly high AST (43). Resp PCR detected + rhinovirus and enterovirus. The patient's asthma attack and SOB was treated with Albuterol/Ipratropium, formoterol Fumarate, budesonide and methylprednisolone. - Past Medical History Cardiovascular: reports: Hypertension, Murmur, Valve disorder Respiratory: reports: Asthma, Pneumonia, Shortness of breath, Other (bronchitis ) Neuro: reports: Peripheral neuropathy Endocrine/Autoimmune: reports: None GI: reports: None, GERD (heartburn every meal. uses pepsid with every meal) ACID WASH OPERATOR: reports: Breast cancer, Other : reports: None HEENT: reports: None Psych: reports: Anxiety Musculoskeletal: reports: Osteoarthritis Derm: reports: None MRSA Hx?: No - Past Surgical History General: reports: Colonoscopy, Other (hernia surgery ) Ortho: reports: Rotator cuff repair /ACID WASH OPERATOR: reports: Hysterectomy, Breast implants, Other (Lumpectomy) Cardiovascular: reports: Other (open heart surgery in 1972) - CONSULTS | PROCEDURES Procedures: Chest x-ray with right pleural thickening versus trace effusion. No acute changes. No pneumonia - HOSPITAL COURSE Hospital Course: (1) Acute asthma exacerbation Qualifiers: Asthma severity: mild Asthma persistence: intermittent Qualified Code(s): J45.21 - Mild intermittent asthma with (acute) exacerbation Assessment/Plan: Resolved Causes included increase dust inhalation when moving boxes and rhinovirus infection (PCR 05/20/2023) hx of asthma since 21 years old heart rate 118-107. O2 sat 92-95% on nasal cannula, 97% on room air. Resp 16-22 tx with inhale Albuterol/Ipratopium, Budesonide, Formoterol Fumarate . She gradually improved with severe wheezing. She went from tripoding to be able to lay back in bed. At discharge still has some faint scattered wheezing. She is exhausted with simple activity While here she received IV methylprednisolone and she was transition to Medrol Dosepak. I am asking her to follow-up with her primary care provider in the next 1 to 2 weeks. She will resume her home medication of inhaled long-acting steroid and inhaled long acting bronchodilator. She is to use her albuterol with ipratropium as needed. I advised her to please stop smoking. (2)Acute bronchitis Conclusion/Plan PCR 05/20 detects rhinovirus/enterovirus hx of bronchitis during fall season ruled out influenza Care was supportive. There is no treatment for enterovirus/rhinovirus (3) hypoxia (resolved) Conclusion/Plan mostly likely due to acute asthma and bronchitis O2 sat 92-95% on nasal cannula, 97% on room air. Resp 16-22 (4) Insomnia Conclusion/Plan Prn zolpidem (5) Hot flashes Conclusion/Plan Continue home med venlafaxine (6) Tobacco addiction Conclusion/Plan She received a daily nicotine patch Greater than 30 minutes was spent coordinating discharge. Went over long-term plans for asthma management, stopping smoking and coordinating care with her primary care provider office This document was made in part using voice recognition software. While efforts are made to proofread this document, sound alike and grammatical errors may occur. - ALLERGIES Allergies/Adverse Reactions: Allergies Allergy/AdvReac Type Severity Reaction Status Date / Time silver Allergy Rash Verified 05/20/23 04:34 [From Tegaderm AG Mesh] - MEDICATIONS Home Medications: Ambulatory Orders Medication Instructions Recorded Confirmed Zolpidem [Ambien] 5 mg PO QPM PRN 05/12/16 05/20/23 amLODIPine [Norvasc] 5 mg PO 1200 05/29/19 05/20/23 Cetirizine [ZyrTEC] 10 mg PO 1200 05/26/22 05/20/23 Montelukast [Singulair] 10 mg PO 1200 05/26/22 05/20/23 Venlafaxine ER [Effexor ER] 75 mg PO 1200 05/26/22 05/20/23 Albuterol Sulf [Ventolin Hfa 1 - 2 puffs INH Q4H PRN #1 each 05/28/22 05/20/23 Inhaler] Fluticasone/Salmeterol [Advair 1 puffs INH BID 05/20/23 05/20/23 500-50 Diskus] guaiFENesin [Mucinex] 600 mg PO BID #30 tab 05/22/23 methylPREDNISolone [Medrol Dose 1 each PO .PACKAGEINSTRUCTIONS 6 05/22/23 Pack] Days #1 each - LABS Result Diagrams: 05/20/23 04:53 05/20/23 04:53"
[2023-05-22] MEDS ORDERED: FLU VACC QS2023-24(6MOS UP)/PF 60 MCG/0.5 ML SYRINGE IM ONE (10:00)
[2023-05-22] MEDS: amLODIPine 5 MG TABLET PO SCH (11:18)
[2023-05-22] MEDS: MONTELUKAST 10 MG TABLET PO SCH (11:18)
[2023-05-22] MEDS: CETIRIZINE 10 MG TABLET PO SCH (11:18)
[2023-05-22] MEDS: VENLAFAXINE ER 75 MG CAPSULE PO SCH (11:18)
[2023-05-22] MEDS ORDERED: dexAMETHasone 4 MG TABLET PO SCH (21:00)
[2023-05-23] MEDS ORDERED: methylPREDNISolone 4 MG TABLET PO ONE (08:00)
[2023-05-24] MEDS ORDERED: methylPREDNISolone 4 MG TABLET PO ONE (08:00)
[2023-05-25] MEDS ORDERED: methylPREDNISolone 4 MG TABLET PO ONE (08:00)
[2023-05-26] MEDS ORDERED: methylPREDNISolone 4 MG TABLET PO ONE (08:00)
== END 2023-05-22 11:30 | disposition home or self-care (01) ==
LOC: EDUNIT# → ED 04:08 → MS2 11:11
PROVIDERS: ADMIT Specialist; ATTEND Specialist
DX: J45.21 Mild intermittent asthma with (acute) exacerbation (principal); J20.6 Acute bronchitis due to rhinovirus; R09.02 Hypoxemia; G47.00 Insomnia, unspecified; F17.213 Nicotine dependence, cigarettes, with withdrawal; I10 Essential (primary) hypertension; K21.9 Gastro-esophageal reflux disease without esophagitis; Z85.3 Personal history of malignant neoplasm of breast; N95.1 Menopausal and female climacteric states
CPT/HCPCS: 36415; 71045; 80053; 83880; 85025; 87633; 90686; 93005; 94640; 96372; 96374; 99284; 99285; A9270; G0378; J1650; J7509; J7626

== ENCOUNTER 2023-10-27 15:11 | Outpatient (CLI) | payer MEDICAID ==
[2023-10-27] MEDS: ALBUTEROL 1 PUFF INH STA (17:50)
== END 2023-10-27 15:12 | disposition home or self-care (01) ==
LOC: RT 15:11
PROVIDERS: ATTEND Registered Nurse
DX: J45.909 Unspecified asthma, uncomplicated (principal)
CPT/HCPCS: 94060; 94729

== ENCOUNTER 2024-01-05 14:01 | Outpatient (CLI) | payer MEDICAID | END 2024-01-05 14:02 | disposition home or self-care (01) | LOC: DI.S 14:01 | PROVIDERS: ATTEND Registered Nurse | DX: Z53.9 Procedure and treatment not carried out, unspecified reason (principal) ==

== ENCOUNTER 2024-02-04 12:43 | Outpatient (CLI) | payer MEDICAID ==
--- NOTE | 2024-02-05 10:54 | Ultrasound Report ---
LIMITED ULTRASOUND OF LEFT BREAST: 02/04/2024 CLINICAL: Focal left breast pain. Patient returns today to evaluate a focal asymmetry in the left gopi ast. Comparison is made to exams dated: 02/04/2024 mammogram - [facility], 10/15/2021 mamm ogram, 03/01/2020 mammogram, 02/24/2019 mammogram, 06/10/2018 mammogram, and 06/03/2018 mammogram - [facility]. Color flow and real-time ultrasound of the left breast 11-2 o'clock region were performed. Aguilar sca le images of the real-time examination were reviewed. There are two adjacent wider than tall oval masses in the left breast superior lateral quadrant anter ior depth 5 cm from the nipple. These oval masses are hypoechoic with well-defined boundaries. Thes e correlate with mammography and breast MRI findings. Color flow imaging demonstrates that there is no vascularity present. Largest measures approximately 0.8 x 0.3 x 0.6 cm in size. These likely lesli elate with oval enhancing masses seen on comparison MRI dated 05/04/2018. There also is an \irregular post-surgical scar in the left breast at 11 o'clock posterior depth. Thi s irregular post-surgical scar is hypoechoic. This correlates with mammography findings. Color flow imaging demonstrates that there is no vascularity present. IMPRESSION: PROBABLY BENIGN The multiple wider than tall oval masses in the left breast superior lateral quadrant anterior depth resemble fibroadenomas and likely correlate with oval masses seen on prior MRI from 2018 and are prob ably benign. The irregular post-surgical scar in the left breast at 11 o'clock posterior depth demonstrates no son ographic abnormalities and new associate coarse calcifications seen on today's mammogram likely repre senting early dystrophic calcifications. This finding is probably benign. There is no abnormality seen in the left breast to correspond with the area of clinical concern and p ain at 1 o'clock in the upper outer quadrant, however, recommend clinical follow up for persistent or worsening symptoms, or development of any clinically suspicious findings. A follow-up left mammogram and a left ultrasound in 6 months is recommended to demonstrate stability. Findings and recommendations were discussed with the patient during today's examination. This exam was interpreted at Station ID: [id number]. Electronically Signed By: Anish Frost M.D. aty/:02/04/2024 15:17:21 Ultrasound BI-RADS: 3 Probably benign BI-RADS CATEGORY: (3) - 3 Mammo and US [id number] 6 month follow-up LATERALITY: (L)
--- NOTE | 2024-02-05 10:54 | Mammography Report ---
BILATERAL DIGITAL DIAGNOSTIC MAMMOGRAM 3D/2D WITH SPOT COMPRESSION AND MAGNIFICATION WITH AUGMENTATIO N: 02/04/2024 CLINICAL: Focal left breast pain. Due for bilateral exam. Comparison is made to exams dated: 10/15/2021 mammogram, 03/01/2020 mammogram, 02/24/2019 mammogram, mammogram, 06/03/2018 mammogram, and 05/04/2018 mammogram - [facility]. MRI breast dated 05/04/2018. There are scattered areas of fibroglandular density in both breasts (category b / 25%-50% glandular t issue). The left breast has post-operative findings. There are new probably benign coarse calcifications in the left breast at 12 o'clock in the posterior depth associated with the otherwise stable appearing p ost surgical scarring. There is an oval equal density focal asymmetry in the left breast at 2 o'clock middle depth. This is more prominent. No other significant masses, calcifications, or other findings are seen in either breast. IMPRESSION: INCOMPLETE: NEEDS ADDITIONAL IMAGING EVALUATION The oval equal density focal asymmetry in the left breast resembles a cyst, a lymph node, or a fibroa denoma and is indeterminate. An ultrasound is recommended for further evaluation and is scheduled to immediately follow this examination. There is no abnormality seen in the left breast to correspond with the area of clinical concern and p ain indicated by square marker at 12 o'clock in the middle depth, however, An ultrasound is recommend ed for further evaluation and is scheduled to immediately follow this examination. New coarse calcifications associated with otherwise stable appearing post surgical scarring in the le ft breast likely representing early dystrophic calcifications are indeterminate. Recommend further ev aluation with targeted ultrasound evaluation. This exam was interpreted at Station ID: [id number]. NOTE: For mammograms, a report in lay terms will be sent to the patient. Approximately 15% of breast malignancies will not be visualized mammographically. In the management of a palpable breast mass, a negative mammogram must not discourage biopsy of a clinically suspicious lesion. Electronically Signed By: Anish Frost M.D. aty/:02/04/2024 15:06:54 ACR BI-RADS Category 0: Incomplete 3340F PARENCHYMAL PATTERN: (A) - The breast(s) demonstrate(s) scattered fibroglandular densities. BI-RADS CATEGORY: (0) - 0 Ultrasound [id number] Immediate follow-up LATERALITY: (L)
== END 2024-02-04 12:44 | disposition home or self-care (01) ==
LOC: DI 12:43
PROVIDERS: ATTEND Registered Nurse
DX: R92.1 Mammographic calcification found on diagnostic imaging of breast (principal); N63.21 Unspecified lump in the left breast, upper outer quadrant; N64.4 Mastodynia; R92.323 Mammographic fibroglandular density, bilateral breasts; Z85.3 Personal history of malignant neoplasm of breast